=== PATIENT | male | born 1945 | race Caucasian/White ===

== ENCOUNTER 2022-04-25 09:32 | Outpatient (CLI) | payer MEDICARE, OTHER, SELFPAY ==
--- OUTSIDE RECORDS SUMMARY | 2022-04-25 09:35 | XMS_ITS | Encounter Summary ---
:1945 Author Organization [place] Address [address] [place] [address]. [place] [address] Care Team Providers Name Role Phone Orlando Arshad MD Primary Care Provider [phone] Orlando Arshad MD Unavailable Reason for Visit Reason Onset Date Comments Medication Question 01/22/2022 gabapentin Encounter Details Date Type Department Care Team Description 01/22/2022 Telephone [facility] Orlando Arshad Med ication Question Clinic [facility] MD (gabapentin) [address] [place] [address] [place], [place] [phone] (Wo rk) [address] [phone] Social History Tobacco Use Types Packs/Day Years Used Date Former Smoker Quit: 11/27/18 72 Smokeless Tobacco: Former User Snuff Q uit: 11/27/1996 Alcohol Use Standard Drinks/Week Comments Never 0 (1 standard drink = 0.6 oz pure alcoho l) Alcohol Habits Answer Date Recorded How often do you have a drink containing alcohol? Never 11/27/2021 How many drinks containing alcohol do you have on a typical Not asked day when you are drinking? How often do you have six or more drinks on one occasion? No t asked Comment: Not asked Sex Assigned at Date Recorded Not on file documented as of this encounter Miscellaneous Notes Telephone Encounter - Jacinda Diana - 01/23/2022 11:49 AM CDT Patient advised. Telephone Encounter - Anjana Gomez RN - 01/23/2022 9:07 AM CDT Attempted to contact patient. Left voice message to call back. Please inform patient that Dr. Arshad said he can increase his gabapentin from 100 mg 3 times a day to 200 mg 3 times per day and sent an updated prescription to [facility] pharmacy. Anjana Gomez RN [facility] Telephone Encounter - Orlando Arshad MD - 01/22/2022 2:34 PM CDT We can increase his gabapentin from 100 mg 3 times a day to 200 mg 3 times per day. An updated prescription has been submitted to his pharmacy. Telephone Encounter - Ger Corona - 01/22/2022 1:01 PM CDT Patient is asking if Dr Arshad can prescribe a higher dosage of RX Gapapentin to 200 mg instead of 100 mg? Going forward, all medications will be sent to [facility] as well. documented in this encounter Plan of Treatment Not on filedocumented as of this encounter Visit Diagnoses Diagnosis Pain in both upper extremities - Primary documented in this encounter Care Teams Manager Clinical Services Relationship Specialty Start Date End Date Orlando Arshad MD PCP - General Internal Medicine 11/27/21 [address] [place] [address] Orlando Arshad MD Assigned PCP 10/31/21 [address] [place] [address] documented as of this encounter
--- OUTSIDE RECORDS SUMMARY | 2022-04-25 09:35 | XMS_ITS | Encounter Summary ---
:1945 Author Organization [place] Address [address] [place] [address] Care Team Providers Name Role Phone Orlando Arshad MD Primary Care Provider [phone] Orlando Arshad MD Unavailable Encounter Details Date Type Department Care Team Description 12/09/2021 Travel Social History Tobacco Use Types Packs/Day Years [...] Assigned at Date Recorded Not on file COVID-19 Exposure Response Date Recorded In the last 10 days, have you been in contact with No / Unsu re 12/09/2021 2:52 PM CDT someone who was confirmed or suspected to have Coronavirus/COVID-19? documented as of this encounter Plan of Treatment Not on filedocumented as of this encounter Visit Diagnoses Not on filedocumented in this encounter Care Teams Mixing And Molding Machine Operator Relationship Specialty Start Date End Date Orlando Arshad MD PCP - General Internal Medicine 11/27/21 [address] [place] [address] Orlando Arshad MD Assigned PCP 10/31/21 [address] [place] [address] documented as of this encounter
--- OUTSIDE RECORDS SUMMARY | 2022-04-25 09:35 | XMS_ITS | Encounter Summary ---
:1945 Author Organization [place] Address [address] [place] [address] Care Team Providers Name Role Phone Orlando Arshad MD Primary Care Provider [phone] Orlando Arshad MD Unavailable Reason for Referral Diagnostic Imaging MRI (Routine) - Closed Specialty Diagnoses / Procedures Referred By Contact Refer red To Contact Diagnoses Weakness of both arms Orlando Arshad MD Procedures MR Cervical Spine w/o Contrast [address] [place] [address] Referral ID Status Reason Start Date Expiration Date Visits Requ ested Visits Authorized [id number] Closed 12/02/2021 12/02/2022 1 1 Reason for Visit Diagnostic Imaging MRI (Routine) - Closed Specialty Diagnoses / Procedures Referred By Contact Refer red To Contact Diagnoses Weakness of both arms Orlando Arshad MD Procedures MR Cervical Spine w/o Contrast [address] [place] [address] Referral ID Status Reason Start Date Expiration Date Visits Requ ested Visits Authorized [id number] Closed 12/02/2021 12/02/2022 1 1 Encounter Details Date Type Department Care Team Description 12/09/2021 Hospital Encounter [facility] Jeancarlos, Weak ness of both [facility] [place] [address] [place] [address] [place] [address] [address] [place] [address] [phone] Social History Tobacco Use Types Packs/Day Years [...] have Coronavirus/COVID-19? documented as of this encounter Medications at Time of Discharge Medication Sig Dispensed Refills Start Date End Date fluticasone (FLOVENT HFA) Inhale 1 puff into 0 220 MCG/ACT inhaler the lungs 2 times daily pravastatin (PRAVACHOL) 40 Take 1 tablet (40 mg) 0 11/27/2021 MG tablet by mouth daily terazosin (HYTRIN) 10 MG Take 1 capsule (10 0 capsule mg) by mouth At Bedtime tiotropium (SPIRIVA) 18 Inhale 1 capsule (18 0 MCG inhaled capsule mcg) into the lungs daily documented as of this encounter Plan of Treatment Not on filedocumented as of this encounter Procedures Procedure Name Priority Date/Time Associated Diagnosis Comme nts MR CERVICAL SPINE Routine 12/09/2021 3:32 PM Weakness of both Results for this W/O CONTRAST CDT arms procedure are i n the results section. documented in this encounter Results MR Cervical Spine w/o Contrast (12/09/2021 3:32 PM CDT) Anatomical Region Laterality Modality Spine, SUBRAD MR NEURO, UMP MR SPINE, RAD MR Magnetic Resonance Specimen (Source) Anatomical Location Collection Method / Collectio n Time Received Time / Laterality Volume Impressions 12/10/2021 9:50 AM CDT IMPRESSION: 1. ??Multilevel cervical spondylosis as described in the body the report. 2. No high-grade spinal canal or foramin al stenosis. 3. No cord signal abnormality. JAE TELLES MD SYSTEM ID: ??[id number] Narrative 12/10/2021 9:50 AM CDT MRI OF THE CERVICAL SPINE WITHOUT CONTRAST 12/09/2021 3:32 PM COMPARISON: 11/27/2021 cervical spine rad iograph HISTORY: Neck pain, chronic, degenerativ e changes on xray; Weakness of both arms TECHNIQUE: Multiplanar, multisequence MR I images of the cervical spine were acquired without intravenous contra st. FINDINGS: Normal vertebral body heights. Normal al ignment. Benign intraosseous hemangioma at the C6 level. No aggressiv e marrow replacing process or significant bone marrow or endplate lesia a. The prevertebral and posterior paraspinous soft tissues are u nremarkable. Normal cord signal. Limited evaluation of the intrac ranial compartment is unremarkable. The craniocervical junction is normal. C2-C3: Normal disc height. 0.2 cm in AP dimension central disc protrusion indents the ventral thecal sa c without spinal canal stenosis or cord contact. Left greater t ryan right uncinate spurring and facet hypertrophy. Mild left foramin al stenosis. No right foraminal stenosis. C3-C4: Normal disc height. Left asymmetr ic disc osteophyte complex with indentation of the left anterolater al thecal sac. Superimposed 0.4 cm central disc extrusion. Left grea ter than right uncinate spurring and facet hypertrophy. Ligament um flavum buckling. Mild spinal canal stenosis. Mild to moderate left foraminal stenosis. Mild right foraminal stenosis. C4-C5: Normal disc height. Posterior deg enerative disc osteophyte complex with bilateral uncinate spurring , facet hypertrophy and ligamentum flavum buckling. Mild spinal canal stenosis. Mild right and jnuv-ah-xljrjdvc left foraminal stenosis . Bilateral C5-C6: Mild disc height loss with circum ferential disc osteophyte complex and left greater than right unco vertebral spurring. Bilateral facet hypertrophy. No spinal canal steno sis. Mild right foraminal stenosis. Moderate left foraminal stenos is. C6-C7: Mild to moderate disc height loss with circumferential disc osteophyte complex and bilateral uncover tebral spurring. Mild facet cirrhosis. No spinal canal stenosis. No foraminal stenosis. C7-T1:Normal disc height and T2-weighted signal. Normal facets. No spinal canal stenosis. No foraminal sten osis. Procedure Note Jae Telles MD - 12/10/2021Forma tting of this note might be different from the original. MRI OF THE CERVICAL SPINE WITHOUT CONTRA ST 12/09/2021 3:32 PM COMPARISON: 11/27/2021 cervical spine rad iograph HISTORY: Neck pain, chronic, degenerativ e changes on xray; Weakness of both arms TECHNIQUE: Multiplanar, multisequence MR I images of the cervical spine were acquired without intravenous contra st. FINDINGS: Normal vertebral body heights. Normal al ignment. Benign intraosseous hemangioma at the C6 level. No aggressiv e marrow replacing process or significant bone marrow or endplate lesia a. The prevertebral and posterior paraspinous soft tissues are u nremarkable. Normal cord signal. Limited evaluation of the intrac ranial compartment is unremarkable. The craniocervical junction is normal. C2-C3: Normal disc height. 0.2 cm in AP dimension central disc protrusion indents the ventral thecal sa c without spinal canal stenosis or cord contact. Left greater t ryan right uncinate spurring and facet hypertrophy. Mild left foramin al stenosis. No right foraminal stenosis. C3-C4: Normal disc height. Left asymmetr ic disc osteophyte complex with indentation of the left anterolater al thecal sac. Superimposed 0.4 cm central disc extrusion. Left grea ter than right uncinate spurring and facet hypertrophy. Ligament um flavum buckling. Mild spinal canal stenosis. Mild to moderate left foraminal stenosis. Mild right foraminal stenosis. C4-C5: Normal disc height. Posterior deg enerative disc osteophyte complex with bilateral uncinate spurring , facet hypertrophy and ligamentum flavum buckling. Mild spinal canal stenosis. Mild right and jzab-jh-iyhxiemh left foraminal stenosis . Bilateral C5-C6: Mild disc height loss with circum ferential disc osteophyte complex and left greater than right unco vertebral spurring. Bilateral facet hypertrophy. No spinal canal steno sis. Mild right foraminal stenosis. Moderate left foraminal stenos is. C6-C7: Mild to moderate disc height loss with circumferential disc osteophyte complex and bilateral uncover tebral spurring. Mild facet cirrhosis. No spinal canal stenosis. No foraminal stenosis. C7-T1:Normal disc height and T2-weighted signal. Normal facets. No spinal canal stenosis. No foraminal sten osis. IMPRESSION: 1. Multilevel cervical spondylosis as de scribed in the body the report. 2. No high-grade spinal canal or foramin al stenosis. 3. No cord signal abnormality. JAE TELLES MD SYSTEM ID: [id number] Orlando Arshad MD IMG MRI ORDERABLES documented in this encounter Visit Diagnoses Diagnosis Weakness of both arms Other musculoskeletal symptoms referable to limbs documented in this encounter Care Teams Life Science Teacher Relationship Specialty Start Date End Date Orlando Arshad MD PCP - General Internal Medicine 11/27/21 [address] [place], [place] [id number] Orlando Arshad MD Assigned PCP 10/31/21 [address] [place], [place] [address] documented as of this encounter
--- OUTSIDE RECORDS SUMMARY | 2022-04-25 09:35 | XMS_ITS | Encounter Summary ---
:1945 Author Organization [facility] Address [address] [place] [address]. [place] [address] Care Team Providers Name Role Phone Orlando Arshad MD Primary Care Provider [phone] Orlando Arshad MD Unavailable Reason for Visit Diagnostic Imaging XR (Routine) - Pending Review Specialty Diagnoses / Procedures Referred By Contact Refer red To Contact Diagnoses Weakness of both arms Orlando Arshad MD Procedures XR Cervical Spine 2/3 Views [address] [place] [address] Referral ID Status Reason Start Date Expiration Date Visits V isits Requested Authorized [id number] Pending 11/27/2021 11/27/2022 1 1 Review Encounter Details Date Type Department Care Team Description 11/27/2021 Ancillary [facility] Sridevi Arshad f both Procedure Clinic [place] [address] MD arms [address] [facility] [address] [place] [address] [phone] Social History Tobacco Use Types Packs/Day Years [...] Exposure Response Date Recorded In the last month, have you been in contact with No / Unsure 11/27/2021 1:47 PM CDT someone who was confirmed or suspected to have Coronavirus / COVID-19? documented as of this encounter Plan of Treatment Not on filedocumented as of this encounter Procedures Procedure Name Priority Date/Time Associated Diagnosis Comme nts XR CERVICAL SPINE Routine 11/27/2021 3:08 PM Weakness of both Results for this 2/3 VIEWS CDT arms procedure are i n the results section. documented in this encounter Results XR Cervical Spine 2/3 Views (11/27/2021 3:08 PM CDT) Anatomical Region Laterality Modality Spine Computed Radiography Specimen (Source) Anatomical Location Collection Method / Collectio n Time Received Time / Laterality Volume Impressions 11/27/2021 5:08 PM CDT IMPRESSION: Bones appear osteopenic which limits evaluation. Mild grade 1 anterolisthesis of C4 on C5. No definite loss of vertebral body height noting limitations by plain film evaluation. No significant prevertebral soft tissue swe lling. Mild degenerative endplate changes and loss of disc height throughout the cervical spine. Prominent anterior osteophytic sp urring at C5-C6. The base of the dens is obscured on the odontoid vie w. COBY BECKER MD SYSTEM ID: ??[id number] Narrative 11/27/2021 5:08 PM CDT CERVICAL SPINE TWO - THREE VIEWS ??11/27/2021 3:08 PM HISTORY: Weakness of both arms. COMPARISON: None. Procedure Note Coby Becker MD - 11/27/2021 CERVICAL SPINE TWO - THREE VIEWS 11/28/19 3:08 PM HISTORY: Weakness of both arms. COMPARISON: None. IMPRESSION: Bones appear osteopenic whic h limits evaluation. Mild grade 1 anterolisthesis of C4 on C5. No definite loss of vertebral body height noting limitations by plain film evaluation. No significant prevertebral soft tissue swe lling. Mild degenerative endplate changes and loss of disc height throughout the cervical spine. Prominent anterior osteophytic sp urring at C5-C6. The base of the dens is obscured on the odontoid juan alberto BECKER MD SYSTEM ID: [email or web address] Orlando Arshad MD IMG DIAGNOSTIC IMAGING ORDER ISA documented in this encounter Visit Diagnoses Diagnosis Weakness of both arms Other musculoskeletal symptoms referable to limbs documented in this encounter Care Teams Student Counselor Relationship Specialty Start Date End Date Orlando Arshad MD PCP - General Internal Medicine 11/27/21 [address] [place] [address] Orlando Arshad MD Assigned PCP 10/31/21 [address] [place], [place] [id number] documented as of this encounter
--- OUTSIDE RECORDS SUMMARY | 2022-04-25 09:35 | XMS_ITS | Encounter Summary ---
:1945 Author Organization [facility] Address [address] [place] [address]. [place] [address] Care Team Providers Name Role Phone Orlando Arshad MD Primary Care Provider [phone] Orlando Arshad MD Unavailable Reason for Referral Diagnostic Imaging MRI (Routine) - Closed Specialty Diagnoses / Procedures Referred By Contact Refer red To Contact Diagnoses Weakness of both arms Orlando Arshad MD Procedures MR Cervical Spine w/o Contrast [address] [place] [address] Referral ID Status Reason Start Date Expiration Date Visits Requ ested Visits Authorized [id number] Closed 12/02/2021 12/02/2022 1 1 Encounter Details Date Type Department Care Team Description 12/02/2021 Orders Only [facility] Orlando Arshad of both arms Clinic [address] MD (Primary Dx) [address] [place] [address] [place] [id number] [phone] Social History Tobacco Use Types Packs/Day Years [...] Not on filedocumented as of this encounter Results MR Cervical Spine w/o [...] Mild spinal canal stenosis. Mild right and oknp-vt-ppfvejmh left foraminal stenosis . Bilateral C5-C6: Mild [...] Mild spinal canal stenosis. Mild right and vzcp-tp-rtnkqivi left foraminal stenosis . Bilateral C5-C6: Mild [...] Visit Diagnoses Diagnosis Weakness of both arms - Primary Other musculoskeletal symptoms referable to limbs Weakness of both arms Other musculoskeletal symptoms referable to limbs documented in this encounter Care Teams Dump Grounds Checker Relationship Specialty Start Date End Date Orlando Arshad MD PCP - General Internal Medicine 11/27/21 [address] [place] [address] Orlando Arshad MD Assigned PCP 10/31/21 [address] [place] [address] documented as of this encounter
--- OUTSIDE RECORDS SUMMARY | 2022-04-25 09:35 | XMS_ITS | Encounter Summary ---
:1945 Author Organization [facility] Address [address] [place] [address]. [place] [address] Care Team Providers Name Role Phone Unavailable Primary Care Provider Unavailable Encounter Details Date Type Department Care Team Description 11/26/2006 Results [facility] Vitor Almodovar MD Hospital Results [facility] UROLOGIC SPECIALIST [address] [facility] [address] [place], [place] [address] (Wo rk) Social History Tobacco Use Types Packs/Day Years Used Date Never Assessed Sex Assigned at Date Recorded Not on file documented as of this encounter Plan of Treatment Not on filedocumented as of this encounter Procedures Procedure Name Priority Date/Time Associated Diagnosis Comme nts US SCROTUM AND Routine 11/26/2006 3:11 PM Resu lts for this CONTENTS CDT procedure are i n the results section. documented in this encounter Results SONO SCROTUM (11/26/2006 3:11 PM CDT) Specimen (Source) Anatomical Collection Method Collection Time Re ceived Time Location / / Volume Laterality 11/26/2006 3:11 PM CDT Impressions RADIOLOGY RESULTS - 11/27/2006 8:14 AM C DT EXAM: US TESTICULAR History: Right testicle mass Findings: The right testicle measures 3. 7 x 3.3 x 2.3 cm. The left testicle measures 4.2 x 3.3 x 2.3 cm. Blood flow is present in both testicles. There is a prominent rete testes in the right testicle. As on the prior exam there is some heter ogeneity of the upper pole of the right testicle. Heterogeneity is in a somewhat geographic distribution suggesting that this is not a mass. ??It may represent some scarring. There is slightly diminis hed blood flow throughout this region. Patient reports a prior biopsy o r possibly two biopsies although he does not know if the testicl e was biopsied. Correlate clinically. There is a 1.9 cm right epididymal head cyst or spermatocele. The right epididymis is somewhat heterogeneo us. No increased blood flow to suggest acute inflammation. Left epididy mis is also mildly heterogeneous. There is a loculated hydr ocele inferior to the left testicle. IMPRESSION: 1. Persistent heterogeneity of the upper pole of the right testicle in a geographic distribution and slightly d ecreased blood flow. This does not have the typical appearance of a mas s. It may represent some chronic scarring. Recommend additional u ltrasound followup in 6 months. A subtle infiltrating mass canno t absolutely be excluded. 2. Prominent right epididymal head cyst. 3. Loculated hydrocele inferior left hem iscrotum. Vitor Almodovar MD SPECIAL IMAGING STUDIES Performing Organization Address City/State/ZIP Code Phon e Number RADIOLOGY RESULTS documented in this encounter Visit Diagnoses Not on filedocumented in this encounter
--- OUTSIDE RECORDS SUMMARY | 2022-04-25 09:35 | XMS_ITS | Encounter Summary ---
:1945 Author Organization [place] Address [address] [place] [address]. [place] [address] Care Team Providers Name Role Phone Unavailable Primary Care Provider Unavailable Encounter Details Date Type Department Care Team Description 08/17/2006 Results Only [facility] Vitor Almodovar MD Hospital Results [facility] UROLOGIC SPECIALIST [address] [facility] [address] [place], [place] [address] (Wo rk) Social History Tobacco Use Types Packs/Day Years Used Date Never Assessed Sex Assigned at Date Recorded Not on file documented as of this encounter Plan of Treatment Not on filedocumented as of this encounter Procedures Procedure Name Priority Date/Time Associated Diagnosis Comme nts US SCROTUM AND Routine 08/17/2006 4:25 PM Resu lts for this CONTENTS TAPPER OPERATOR procedure are i n the results section. documented in this encounter Results SONO SCROTUM (08/17/2006 4:25 PM TAPPER OPERATOR) Specimen (Source) Anatomical Collection Method Collection Time Re ceived Time Location / / Volume Laterality 08/17/2006 4:25 PM TAPPER OPERATOR Impressions RADIOLOGY RESULTS - 08/18/2006 7:[address] EXAM: US TESTICULAR HISTORY: right testicular mass FINDINGS: The right testicle measures 3. 3 x 2.4 x 3.0 cm. The left measures 4.2 x 2.9 x 2.9 cm. There is sy mmetric flow in the testicles. Prominent rete testes in the right testi rosa m, a normal finding. There is also some mild inhomogeneity of the u pper portion of the right testicle which has the suggestion of pro minent testicular architecture and does not have the appearance of a ma ss. However, recommend short-term followup to confirm continued benign appearance. There is a 1.9 cm right epididymal head cyst which appears to correspond with a palpable abnormality. Both epididymides are somewhat hypoechoic and mildly prominent, probabl y within normal limits in this patient. No evidence for increased flow to suggest epididymitis. Small left hydrocele. IMPRESSION: ?? 1. Right epididymal head cyst. 2. Small left hydrocele. 3. Mild inhomogeneity of the upper right testicle, probably within normal limits. Recommend short-term foll owup ultrasound in 3 months to reevaluate. Vitor Almodovar MD SPECIAL IMAGING STUDIES Performing Organization Address City/State/ZIP Code Phon e Number RADIOLOGY RESULTS documented in this encounter Visit Diagnoses Not on filedocumented in this encounter
--- OUTSIDE RECORDS SUMMARY | 2022-04-25 09:35 | XMS_ITS | Encounter Summary ---
:1945 Author Organization [place] Address [address] [place] [address]. [place] [address] Care Team Providers Name Role Phone Juliane Arshad MD Primary Care Provider [phone] Juliane Arshad MD Unavailable Reason for Visit Reason Onset Date Comments Results 12/11/2021 MRI Encounter Details Date Type Department Care Team Description 12/11/2021 Telephone [facility] Celestine Arshad, Results (MRI) [facility] [place] [address] [place] [address] [phone] Social History Tobacco Use Types Packs/Day Years [...] have Coronavirus/COVID-19? documented as of this encounter Miscellaneous Notes Telephone Encounter - Anjana Gomez RN - 12/13/2021 8:00 AM CDT Left detailed voice message for patient advising him 1 month trial of gabapentin 100 mg TID sent to local [facility], not [facility]. This is a very low dose to start and it may need jhonny adjusted based on his response to it. Asked patient to contact the clinic if he wants the prescription sent to [facility] instead. Also asked him to call back with update on his response in a few weeks. Anjana Gomez RN [facility] Telephone Encounter - Juliane Arshad MD - 12/12/2021 4:59 PM CDT A prescription for gabapentin 100 mg by mouth 3 times per day was submitted to the patient's pharmacy. We will proceed with a 1 month trial of this medication. Patient should be aware that he is on a very low dose of this medication, and we may have to increase the dosage based upon his response. Telephone Encounter - Kailyn Beckman - 12/12/2021 4:32 PM CDT Patient calling. He wants to start on medication. Patient has two sons who are PT and they are working with him. Please [facility] RX to [facility]. Ok to call and [phone] Telephone Encounter - Coco Randhawa RN - 12/12/2021 11:51 AM CDT Pt calls, mailed results per his request. Telephone Encounter - Coco Pittman - 12/11/2021 2:06 PM CDT Patient calls back and message was read to him. 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 ??This is the likely cause of his issues with weakness in his upper extremities. ??I would recommend that he consider a trial of physical therapy to see if we can help improve his symptoms. ??We could also try a medication to help see if we can decrease the severity of his symptoms. ??If patient is agreeable, I can submit a referral for physical therapy, and I can also submit a prescription for medication called gabapentin to see if that would help improvehis symptoms. Left message for patient to call back. Telephone Encounter - Kailyn Beckman - 12/11/2021 12:04 PM CDT Patient calling for results of MRI Ok to call and lm [phone] Addendum Note - Juliane Arshad MD - 12/11/2021 12:04 PM CDT Addended by: JULIANE ARSHAD on: 12/12/2021 05:00 PM Modules accepted: Orders documented in this encounter Plan of Treatment Not on filedocumented as of this encounter Visit Diagnoses Diagnosis Weakness of both arms - Primary Other musculoskeletal symptoms referable to limbs documented in this encounter Care Teams Federal Law Clerk Relationship Specialty Start Date End Date Juliane Arshad MD PCP - General Internal Medicine 11/27/21 [place] [address] Juliane Arshad MD Assigned PCP 10/31/21 [address] [place] [address] documented as of this encounter
--- OUTSIDE RECORDS SUMMARY | 2022-04-25 09:35 | XMS_ITS | Encounter Summary ---
:1945 Author Organization [place] Address [address] [place] [address]. [place] [address] Care Team Providers Name Role Phone Orlando Arshad MD Primary Care Provider [phone] Orlando Arshad MD Unavailable Encounter Details Date Type Department Care Team Description 11/27/2021 Travel Social History Tobacco Use Types Packs/Day [...] on filedocumented in this encounter Care Teams Hospital Insurance Clerk Relationship Specialty Start Date End Date Orlando Arshad MD PCP - General Internal Medicine 11/27/21 [address] [place] [address] Orlando Arshad MD Assigned PCP 10/31/21 [place] [id number] documented as of this encounter
--- OUTSIDE RECORDS SUMMARY | 2022-04-25 09:35 | XMS_ITS | Encounter Summary ---
:1945 Author Organization [facility] Address [address] [place] [address]. [place] [address] Care Team Providers Name Role Phone Orlando Arshad MD Primary Care Provider [phone] Orlando Arshad MD Unavailable Reason for Referral Diagnostic Imaging XR (Routine) - Pending Review Specialty Diagnoses / Procedures Referred By Contact Refer red To Contact Diagnoses Weakness of both arms Orlando Arshad MD Procedures XR Cervical Spine 2/[address] [place] [address] Referral ID Status Reason Start Date Expiration Date Visits V isits Requested Authorized [id number] Pending 11/27/2021 11/27/2022 1 1 Review Reason for Visit Reason Comments Mass Fatigue Encounter Details Date Type Department Care Team Description 11/27/2021 Office Visit [facility] Orlando Arshad n in both upper extremities (Primary Dx); Clinic [address] MD Weakness of both arms; [address] [address] Diastasis [place] [id number] [phone] Social History Tobacco Use Types Packs/Day Years [...] / COVID-19? documented as of this encounter Last Filed Vital Signs Vital Sign Reading Time Taken Comments Blood Pressure 120/78 11/27/2021 2:10 PM CDT Pulse 62 11/27/2021 2:10 PM CDT Temperature 36.4 ??C (97.5 ??F) 11/27/2021 2:10 PM CDT Respiratory Rate 16 11/27/2021 2:10 PM CDT Oxygen Saturation 95% 11/27/2021 2:10 PM CDT Inhaled Oxygen Concentration - - Weight 96.2 kg (212 lb) 11/27/2021 2:10 PM CDT Height 181.6 cm (5' 11.5) 11/27/2021 2:10 PM CDT Body Mass Index 29.16 11/27/2021 2:10 PM CDT documented in this encounter Patient Instructions Patient InstructionsCunnOrlando silva MD - 11/27/2021 2:30 PM CDT Initial evaluation of his symptoms will include blood test for CPK, ESR, and CRP. We will also proceed with x-ray imaging of his cervical spine. documented in this encounter Progress Notes Orlando Arshad MD - 11/27/2021 2:30 PM CDT Images from the original note were not included. Assessment & Plan Pain in both upper extremities and weakness of both arms Patient is reporting issues with pain and weakness in his bilateral upper extremities. He is not currently reporting any neck pain, but I did feel that it was worthwhile to proceed with x-ray imaging of his cervical spine to evaluate for any degenerative changes that could indicate nerve root pathology. Patient will also submit a blood sample for inflammatory markers as well as a CPK to ensure that he is not having any issues with muscle tissue turnover that could be causing his issues with weaknessand loss of muscle mass. Patient did express some concerns about underlying neurologic condition, such as ALS or MS. I did discuss with him that we could proceed with MRI imaging of his brain and spinal cord to evaluate for any lesions that would be consistent with either of these neurologic conditions. Patient did elect to see the results of his x-ray and blood tests before proceeding with any additional imaging. We will contact him with results once they are available for review. - CK total - ESR: Erythrocyte sedimentation rate - CRP, inflammation -X-ray cervical spine, 2-3 views Diastasis recti Patient appears to have a case of diastases recti involving the midline of his abdomen. Given that it is not causing him any symptoms, we did elect to monitor this lesion for any changes. Ordering of each unique test 30 minutes spent on the date of the encounter doing chart review, history and exam, documentation and further activities per the note { BMI: Estimated body mass index is 29.16 kg/m?? as calculated from the following: Height as of this encounter: 1.816 m (5' 11.5). Weight as of this encounter: 96.2 kg (212 lb). See Patient Instructions Return in about 2 weeks (around 12/11/2021), or if symptoms worsen or fail to improve. Orlando Arshad MD [facility] Gadiel is a 76 year old who presents with bilateral arm symptoms Patient is a 76-year-old male who presents to the clinic as a new patient to discuss concerns about his arms. He reports that for the last 6 weeks he has had issues with persistent episodes of pain that will occur down the length of both arms. This pain will occur if he is trying to perform twisting movements with his upper extremities. Is also been concerned about loss of muscle mass in his arms as well. He does report some intermittent episodes of weakness, but he denies any issues with numbness or tingling in either extremity. Patient states that his pain does occur from his wrists allthe way up to his shoulders bilaterally. He does not recall any traumatic injury or event that triggered his discomfort. He has been taking ibuprofen intermittently for his discomfort, but it did not resolve his symptoms fully. Patient is very concerned that there could be an underlying neurologic condition causing his symptoms. He is not aware of any family history of neurologic disorders. He is also had no change in his bowel or bladder habits. His urine has not had any unusual colors. He also notes a bulging area in his mid abdomen. This lesion has been present for several years, and it is only noticeable when he performs any flexion of his abdominal muscles. It does not cause him any discomfort. He would like to have it evaluated. Concerned of possible umbilical hernia for years. Bilateral arm weakness for 6 weeks. Denies injury. Review of Systems Constitutional: Negative. HENT: Negative. Respiratory: Negative. Cardiovascular: Negative. Gastrointestinal: Negative. Musculoskeletal: Positive for arthralgias and myalgias. Neurological: Positive for weakness. Negative for numbness. Objective Blood pressure 120/78, pulse 62, temperature 97.5 ??F (36.4 ??C), temperature source Oral, resp. rate 16, height 1.816 m (5' 11.5), weight 96.2 kg (212 lb), SpO2 95 %. Physical Exam Vitals and nursing note reviewed. Constitutional: Appearance: Normal appearance. HENT: Head: Normocephalic and atraumatic. Right Ear: Tympanic membrane, ear canal and external ear normal. Left Ear: Tympanic membrane, ear canal and external ear normal. Mouth/Throat: Mouth: Mucous membranes are moist. Pharynx: Oropharynx is clear. Eyes: Extraocular Movements: Extraocular movements intact. Conjunctiva/sclera: Conjunctivae normal. Pupils: Pupils are equal, round, and reactive to light. Cardiovascular: Rate and Rhythm: Normal rate and regular rhythm. Pulses: Normal pulses. Heart sounds: Normal heart sounds. Pulmonary: Effort: Pulmonary effort is normal. Breath sounds: Normal breath sounds. Abdominal: General: Bowel sounds are normal. Palpations: Abdomen is soft. Comments: Diastases recti noted with tension of his abdominal muscles. Musculoskeletal: Right shoulder: No tenderness. Decreased range of motion. Left shoulder: No tenderness. Decreased range of motion. Comments: Pain associated with external and internal rotation of shoulder joints bilaterally. Skin: Capillary Refill: Capillary refill takes less than 2 seconds. Neurological: General: No focal deficit present. Mental Status: He is alert and oriented to person, place, and time. Mental status is at baseline. Motor: Motor function is intact. Coordination: Coordination is intact. Deep Tendon Reflexes: Reflexes are normal and symmetric. Diagnostic Test Results: ESR, CRP, and CPK are pending. X-ray of cervical spine, 2-3 views is pending. documented in this encounter Plan of Treatment Not on filedocumented as of this encounter Procedures Procedure Name Priority Date/Time Associated Comments Diagnosis ERYTHROCYTE Routine 11/27/2021 3:14 PM Pain in both upper Res ults for this SEDIMENTATION RATE CDT extremities procedure are in AUTO the results section. CRP INFLAMMATION Routine 11/27/2021 3:14 PM Pain in both upper Results for this CDT extremities procedure are i n the results section. CK TOTAL Routine 11/27/2021 3:14 PM Pain in both upper Res ults for this CDT extremities procedure are i n the results section. documented in this encounter Results CRP, inflammation (11/27/2021 3:14 PM CDT) Analysis Performed At Patho logist Time Signature CRP Inflammation <2.9 0.0 - 8.0 11/27/2021 [facility] Y mg/L 7:17 PM CDT Specimen Anatomical Collection Method / Collection Time Recei ira Time (Source) Location / Volume Laterality Blood BLOOD SPECIMEN / Venipuncture / 11/27/2021 3:14 2021 3:14 Unknown Unknown PM CDT PM CDT Orlando Arshad MD LAB - BLOOD ORDERABLES Performing Organization Address City/State/ZIP Code Phon e Number [facility] [place] [address] Lab [address] [facility] [address] Building, Room 3-580 ESR: Erythrocyte sedimentation rate (11/27/2021 3:14 PM CDT) Patholo gist Method Time Signature Erythrocyte 4 0 - 20 11/27/2021 [facility] Sedimentation Rate mm/hr 3:23 PM CDT Specimen Anatomical Collection Method / Collection Time Recei ira Time (Source) Location / Volume Laterality Blood BLOOD SPECIMEN / Venipuncture / 11/27/2021 3:14 2021 3:14 Unknown Unknown PM CDT PM CDT Orlando Arshad MD LAB - BLOOD ORDERABLES Performing Organization Address City/[facility]/ZIP Code Phon [place] Number [place] [address] [phone] [facility] [address], [address] [place] [address], [phone] [facility] [address] [place] [facility], [address] CK total (11/27/2021 3:14 PM CDT) athologist Signature CK 100 30 - 300 U/L 11/28/2021 [facility] 8:22 AM CDT Specimen Anatomical Collection Method / Collection Time Recei ira Time (Source) Location / Volume Laterality Blood BLOOD SPECIMEN / Venipuncture / 11/27/2021 3:14 2021 3:14 Unknown Unknown PM CDT PM CDT Orlando Arshad MD LAB - BLOOD ORDERABLES Performing Organization Address City/[facility]/ZIP [facility] Phon e Number [facility] [place], [place] [phone] [facility] [phone] [place] [address] Lab (no room number, 1st floor of clinic) [facility] [place], [place] [phone] [facility] [address] [address] [place] [address] Lab (no room number, 1st floor of clinic) XR Cervical Spine 2/3 Views (11/27/2021 3:08 [...] vie w. COBY BECKER MD SYSTEM ID: [id number] Orlando Arshad MD IMG DIAGNOSTIC IMAGING ORDER IAS documented in this encounter Visit Diagnoses Diagnosis Pain in both upper extremities - Primary Weakness of both arms Other musculoskeletal symptoms referable to limbs Diastasis recti Diastasis of muscle Weakness of both arms Other musculoskeletal symptoms referable to limbs documented in this encounter Care Teams Venetian Blind Mechanic Relationship Specialty Start Date End Date Orlando Arshad MD PCP - General Internal Medicine 11/27/21 [address] [place], [place] [id number] Orlando Arshad MD Assigned PCP 10/31/21 [address] [facility] [place] [id number] documented as of this encounter
--- OUTSIDE RECORDS SUMMARY | 2022-04-25 09:35 | XMS_ITS | Clinical Summary ---
:1945 Author Organization [facility] Address [address] [place] [address] Care Team Providers Name Role Phone Orlando Arshad MD Primary Care Provider [phone] Orlando Arshad MD Unavailable Allergies No known active allergies Medications Medication Sig Dispensed Refills Start Date End Date Status fluticasone (FLOVENT Inhale 1 puff 0 11/27/2021 Active HFA) 220 MCG/ACT into the lungs 2 inhaler times daily tiotropium (SPIRIVA) Inhale 1 capsule 0 11/27/2021 Active 18 MCG inhaled (18 mcg) into the capsule lungs daily pravastatin Take 1 tablet (40 0 11/27/2021 Active (PRAVACHOL) 40 MG mg) by mouth tablet daily terazosin (HYTRIN) 10 Take 1 capsule 0 11/27/2021 Active MG capsule (10 mg) by mouth At Bedtime gabapentin Take 1 capsule 90 capsule 0 12/12/2021 Ac tive (NEURONTIN) 100 MG (100 mg) by mouth capsuleIndications: 3 times daily Weakness of both arms gabapentin Take 2 capsules 180 capsule 1 01/22/2022 Active (NEURONTIN) 100 MG (200 mg) by mouth capsuleIndications: 3 times daily Pain in both upper extremities Active Problems No known active problems Immunizations Name Administration Dates Next Due COVID-19,PF,Pfizer (12+ Yrs) 06/03/2021, 10/14/2020, 021 Influenza, Quad, High Dose, Pf, 65yr+ 06/26/2021, 06/14/2020 (Fluzone HD) Pneumococcal 23 valent 07/01/2012 Tdap (Adacel,Boostrix) 07/01/2012 Tetanus 03/02/2011 Zoster vaccine recombinant adjuvanted 10/25/2018, 08/12/2018 (SHINGRIX) Family History Medical History Relation Comments Cerebral aneurysm Father Liver Cancer Mother Diabetes No family hx of Relation Status Comments Father (Age 43) Maternal Grandfather Maternal Grandmother Mother (Age 63) Paternal Grandfather Paternal Grandmother Social History Tobacco Use Types Packs/Day Years [...] Assigned at Date Recorded Not on file Last Filed Vital Signs Vital Sign Reading [...] Mass Index 29.16 11/27/2021 2:10 PM CDT Plan of Treatment Health Maintenance Due Date Last Done Comments ADVANCE CARE PLANNING 1945 HEPATITIS C SCREENING 1963 LIPID 1980 MEDICARE ANNUAL WELLNESS 2010 VISIT Pneumococcal Vaccine: 65+ 07/01/2013 07/01/2012 Years (2 - PCV) COVID-19 Vaccine (4 - Booster 10/04/2021 06/03/2021, for Pfizer series) 10/14/2020, 09/23/2020 INFLUENZA VACCINE (#1) 2022 06/26/2021, 06/14/2020 DTAP/TDAP/TD IMMUNIZATION (2 07/01/2022 07/01/2012, - Td or Tdap) 03/02/2011 ANNUAL REVIEW OF HM ORDERS 11/27/2022 11/27/2021 FALL RISK ASSESSMENT 11/27/2022 11/27/2021 ZOSTER IMMUNIZATION Completed 10/25/2018, 08/12/2018 PHQ-2 (once per calendar Completed 11/27/2021 year) HEPATITIS B IMMUNIZATION Aged Out No long er eligible based on patient's age to complete this to pic IPV IMMUNIZATION Aged Out No longer eligi ble based on patient's age to complete this to pic MENINGITIS IMMUNIZATION Aged Out No longe r eligible based on patient's age to complete this to [facility] Insurance Payer Benefit Plan Subscriber ID Effective Phone Address Typ e / Group Dates MEDICARE MEDICARE [id number] 2010-Pres [phone] ATTN KAPIL MS Medicare ent [address] [place] [address] /CHAMP FOR [id number] 2021-Prese [phone] TRICAR E FOR Indemnity [place] [employer] nt 04 LIFE [address] [place] [address] Care Teams Installation Superintendent Relationship Specialty Start Date End Date Orlando rAshad MD PCP - General Internal Medicine 11/27/21 [address] [id number] Orlando Arhsad MD Assigned PCP 10/31/21 [address] [phone]
--- NOTE | 2022-04-25 10:00 | CRLHL7_ITS ---
For Patients: As a result of the Century Cures Act, medical imaging exams and procedure reports are released immediately into your electronic medical record. You may view this report before your referring provider. If you have questions, please contact your health care provider. Indication: COMPARE FOR RX, PLEURAL EFFUSION Technique: Noncontrast CT chest Please note that all CT scans at this facility use dose modulation, iterative reconstruction, and/or weight-based dosing when appropriate to reduce radiation dose to as low as reasonably achievable. Comparison: February 20, 2022 Findings: Mild linear subsegmental scarring is present within the lower lobes. No pleural effusion. No pneumothorax. The thyroid is similar with a small nodule within the inferior left isthmus. No mediastinal, hilar or axillary adenopathy. No fracture. Bilateral renal cysts. Nonobstructing stones left kidney. Vascular calcifications. Impression: Improved appearance of the chest compared to the prior study with improved aeration within both lower lobes and resolution of small pleural effusions. Decreased adenopathy. Mild residual linear subsegmental scarring in both lower lobes. Stable nonobstructing stones within the left kidney measuring up to 9 millimeters. Please note that all CT scans at this facility use dose modulation, iterative reconstruction, and/or weight-based dosing when appropriate to reduce radiation dose to as low as reasonably achievable. Dictated by Brian Santos MD @ 04/25/2022 10:53:27 AM (Electronically Signed)
== END 2022-04-25 09:33 | disposition home or self-care (01) ==
LOC: CT 09:33
PROVIDERS: PCP Family Medicine; Visit Provider Internal Medicine Pulmonary Disease
DX: J90 Pleural effusion, not elsewhere classified (principal); N20.0 Calculus of kidney; R59.9 Enlarged lymph nodes, unspecified; R91.8 Other nonspecific abnormal finding of lung field; R50.9 Fever, unspecified; R61 Generalized hyperhidrosis
CPT/HCPCS: 71250; 93306

== ENCOUNTER 2022-04-30 15:42 | Outpatient (CLI) | payer MEDICARE, OTHER, SELFPAY ==
--- OUTSIDE RECORDS SUMMARY | 2022-05-09 09:02 | XMS_ITS | Clinical Summary ---
:1945 Author Organization [employer] [facility] [place] [address] Care Team Providers Name Role Phone Lopez Avitia MD Primary Care Provider Allergies No known active allergies Medications Medication Sig Dispensed Refills Start Date End Date Status aspirin (ECOTRIN) 81 mg Take 1 tablet by 0 6 Active enteric coated tablet mouth once daily with a meal. Terazosin HCl 10 mg Take by mouth at 0 03/10/2016 Active capsule bedtime. fluticasone (FLOVENT) Inhale 1 Puff by 0 03/10/2016 Active 110 mcg/Actuation mouth 2 times inhaler daily. pravastatin (PRAVACHOL) Take by mouth at 0 6 Active 10 mg tablet bedtime. tiotropium bromide Inhale by mouth. 0 03/10/2016 Active (SPIRIVA RESPIMAT) 1.25 mcg/actuation mist Active Problems No known active problems Encounters Date Type Specialty Care Team Description 04/25/2022 Orders Only <No scans attac hed> 02/25/2022 Lab Requisition Lopez Avitia MD 02/24/2022 Lab Requisition Unknown, Doctor from Last 3 Months Immunizations Name Administration Dates Next Due Tdap 07/01/2012 Social History Tobacco Use Types Packs/Day Years Used Date Former Smoker Smokeless Tobacco: Former User Alcohol Use Standard Drinks/Week Comments No 0 (1 standard drink = 0.6 oz pure alcoho l) Sex Assigned at Date Recorded Not on file Obstetrics History Last Filed Vital Signs Vital Sign Reading Time Taken Comments Blood Pressure 142/82 03/10/2016 11:10 AM CDT Pulse 69 03/10/2016 11:10 AM CDT Temperature - - Respiratory Rate - - Oxygen Saturation 96% 03/10/2016 11:10 AM CDT Inhaled Oxygen Concentration - - Weight - - Height - - Body Mass Index - - Plan of Treatment Health Maintenance Due Date Last Done Comments Depression screening for age 12+ 1957 BMI (ht and wt on same day) for age 18+ 1963 Hepatitis C screening for age 18-79 1963 Zoster (shingles) series for age 50+ (1 of 2) 1995 Pneumococcal series for age 65+ (1 - PCV) 2010 COVID-19 vaccine series (2 - Moderna series) 01/11/2022 Influenza for age 65+ 05/01/2022 Tetanus booster 07/01/2022 07/01/2012 Tdap Completed 07/01/2012 Procedures Procedure Name Priority Date/Time Associated Comments Diagnosis ECHO COMPLETE WO Routine 04/25/2022 10:42 Pleural effusion Res ults for this CONTRAST AM CDT procedure are i n the results section. QFT MITOGEN Routine 02/24/2022 2:23 PM Results f or this PERFORMABLE CDT procedure are i n the results section. QFT TB2 PERFORMABLE Routine 02/24/2022 2:23 PM Re sults for this CDT procedure are i n the results section. QFT TB1 PERFORMABLE Routine 02/24/2022 2:23 PM Re sults for this CDT procedure are i n the results section. QUANTIFERON TB GOLD Routine 02/24/2022 2:23 PM Re sults for this PLUS CDT procedure are i n the results section. QUANTIFERON TB GOLD Routine 02/24/2022 2:23 PM Re sults for this PLUS CDT procedure are i n the results section. LAB TRACKING EVENT Routine 02/22/2022 4:00 AM CDT PERIPHERAL BLD Routine 02/22/2022 4:00 AM Results for this MORPHOLOGY CDT procedure are i n the results section. RETICULOCYTES Routine 02/22/2022 4:00 AM Results for this CDT procedure are i n the results section. from Last 3 Months Results ECHO COMPLETE WO CONTRAST (04/25/2022 10:42 AM CDT) P athologist Signature AORTIC VALVE 4 mmHg MEAN PG EJECTION 66 % FRACTION PEAK TR 2.5 m/s VELOCITY LVEDD 5.2 cm Anatomical Region Laterality Modality HEART Ultrasound Specimen (Source) Anatomical Collection Method Collection Time Re ceived Time Location / / Volume Laterality 04/25/2022 10:09 AM CDT Narrative 04/25/2022 11:08 AM CDT ECHOCARDIOGRAM GADIEL WALLS ?Acces trent#: ?? [id number] : ?1945 76 years Study Date : ?? 04/25/2022 10:09:46 AM Gender: M ? BP: ? 102/60 mmHg Height: 180.00 cm ? BSA: ?2.14 m? ?? Weight: 94.00 kg ?Tech: ? MJJ ?Referring MD: ANA CRISTINA MOE Site: ? [facility] Reading Location: MOBILE-OP Procedure: 2D, Color Doppler and Spectra l Doppler. Indication for study: Pleural effusion Cardiac Rhythm: Irregular.Study quality: Fair. Final Impressions: 1. Normal left ventricular size, mildly increased wall thickness, normal global systolic function, calculated EF of 66 %. 2. Right ventricular cavity size is mil dly enlarged, global systolic RV function is borderline reduced. 3. Mild-moderate tricuspid regurgitatio n. 4. The inferior vena cava is dilated, r espiratory size variation greater than 50%. Comparison There are no prior studies on this patie nt for comparison purposes. Chamber Sizes and Function Normal left ventricular size, mildly inc reased wall thickness, normal global systolic function, calculated EF of 66 %. Left atrial size is normal. Left atrial pressure is normal. Right ventricular cavit y size is mildly enlarged, global systol ic RV function is borderline reduced. The right atrium is moderately enlarged. Right atrial volume index is 40 ml/m? ??. Right atrial area is 23 cm? ??. The pulmo nary artery is of normal size and origin . The sinus of Valsalva is normal sized. The ascending aorta is normal sized. Valves, RV Pressures and Diastolic Funct ion The aortic valve is normal in structure and trileaflet, no stenosis and trivial regurgitation. The mitral valve is normal in structure, trace mitral regurgitation. Spectral Doppler shows Grade 1 pattern of LV diastolic filling. The tricuspid valve is normal in structure. Tricuspid regurgitation is mild-moderate. The tricuspid regurgitant velocity is 2.5 m/s, the estimated right ventricular systolic pr essure is 24 mmHg plus right atrial pres sure. There is mildly increased estimated pulmonary pressure by tricuspid regurgitation velocity and right atrial pressure. The pulmonic valve is normal. Trace pulmonary regurgitation. Masses, Effusion, Shunts There is no pericardial effusion. The in ferior vena cava is dilated, respiratory size variation greater than 50%. No left to right shunting was detected by limited color flow Doppler interrogation of the interatrial septum. MEASUREMENTS AND CALCULATIONS 2-D Measurements and LV Function: LVID (d) 5.2 cm Planimetered EF 66 % LVID (s) 3.2 cm LV FS% (2D) ? 39 % IVS (d) ??1.3 cm LVOT diameter ?? 2.0 cm LVPW (d) 1.4 cm HR ?5 3 bpm Ao Sinus 3.6 cm LA Vol index ?12 ml/ m2 Asc Ao ?? 3.4 cm RA Vol index ?40 ml /m2 LA ? 3.8 cm RA area ? 2 3 cm?RV Max 4C (d) ?? 4.2 cm Diastology: Mitral ?Tissue Doppler ?Pulmonary veins E Peak 0.9 m/s ??e', Septum ? 0.09 m /s Pulm s ?82.5 cm/s A Peak 0.9 m/s ??e', Lateral ?0.10 m /s Pulm d ?47.0 cm/s E/A ?1.0 ?E/e' Average ?? 8.9 1 ? Pulm s/d ratio ??1.76 DT ? 292 msec IVRT ?? 108 msec Aortic Valve: Vmax ? 1.4 m/s ??SP (V) ?? 1.57 cm? AI P 1/2 478 msec VTI ?0.29 m ?? SP (I) ?? 1.64 cm? ?? LVOT V max 0.7 m/s ??Max PG ?8 mmHg LVOT VTI ?? 0.16 m ?? Mean PG ?? 4 mmHg SV ? 48 ml ?Dim Index 0.54 SV index ?? 22 ml/m? ?? CO ?2.5 l/min ?CI ?1.2 l/min/m? ?? Mitral Valve: MVA ?2.6 cm? ?? MV P 1/2 85 msec Tricuspid Valve and estimated PA pressur es: TR Vmax 2.5 m/s TAPSE 1.8 cm TR maxG 24 mmHg Pulmonic Valve: PIEDV 1.1 m/s . This study was interpreted by an [facility] redited facility. CC: [facility]. ??Final ?? Procedure Note Kurtis Inman MD - 04/25/2022Fo rmatting of this note might be different from the original. ECHOCARDIOGRAM GADIEL WALLS : 1945 76 years Study Date: 04/01 10:09:46 AM Gender: M BP: 102/60 mmHg Height: 180.00 cm BSA: 2.14 m? ?? Weight: 94.00 kg Tech: LIBORIO Referring MD: ANA CRISTINA MOE Site: [facility] Reading Location: MOBILE-OP Procedure: 2D, Color Doppler and Spectra l Doppler. Indication for study: Pleural effusion Cardiac Rhythm: Irregular.Study quality: Fair. Final Impressions: 1. Normal left ventricular size, mildly increased wall thickness, normal global systolic function, calculated EF of 66 %. 2. Right ventricular cavity size is mil dly enlarged, global systolic RV function is borderline reduced. 3. Mild-moderate tricuspid regurgitatio n. 4. The inferior vena cava is dilated, r espiratory size variation greater than 50%. Comparison There are no prior studies on this patie nt for comparison purposes. Chamber Sizes and Function Normal left ventricular size, mildly inc reased wall thickness, normal global systolic function, calculated EF of 66 %. Left atrial size is normal. Left atrial pressure is normal. Right ventricular cavity size is mildly enlarged, global systolic RV func tion is borderline reduced. The right atrium is moderately enlarged. Right atrial volume index is 40 ml/m? ??. Right atrial area is 23 cm? ??. The pulmonary artery is of normal size and origin. The sinus of Valsalva i s normal sized. The ascending aorta is normal sized. Valves, RV Pressures and Diastolic Funct ion The aortic valve is normal in structure and trileaflet, no stenosis and trivial regurgitation. The mitral valve is normal in structure, trace mitral regurgitation. Spectral Doppler shows Grade 1 pattern of LV diastolic filling. The tricuspid valve i s normal in structure. Tricuspid regurgitation is mild-moderate. The tricuspid regurgitant velocity is 2.5 m/s, the estimated right ventricular systolic pressure is 24 mmHg plus right atrial pressure. There is mildly i ncreased estimated pulmonary pressure by tricuspid regurgitation velocity and right atrial pressure. The pulmonic valve is normal. Trace pulmonary regurgitation. Masses, Effusion, Shunts There is no pericardial effusion. The in ferior vena cava is dilated, respiratory size variation greater than 50%. No left to right shunting was detected by limited color flow Doppler interrogation of the interatrial septum. MEASUREMENTS AND CALCULATIONS 2-D Measurements and LV Function: LVID (d) 5.2 cm Planimetered EF 66 % LVID (s) 3.2 cm LV FS% (2D) 39 % IVS (d) 1.3 cm LVOT diameter 2.0 cm LVPW (d) 1.4 cm HR 53 bpm Ao Sinus 3.6 cm LA Vol index 12 ml/m2 Asc Ao 3.4 cm RA Vol index 40 ml/m2 LA 3.8 cm RA area 23 cm? ?? RV Max 4C (d) 4.2 cm Diastology: Mitral Tissue Doppler Pulmonary veins E Peak 0.9 m/s e', Septum 0.09 m/s Pulm s 82.5 cm/s A Peak 0.9 m/s e', Lateral 0.10 m/s Pulm d 47.0 cm/s E/A 1.0 E/e' Average 8.91 Pulm s/d ratio 1.76 DT 292 msec IVRT 108 msec Aortic Valve: Vmax 1.4 m/s SP (V) 1.57 cm? ?? AI P 1/2 478 msec VTI 0.29 m SP (I) 1.64 cm? ?? LVOT V max 0.7 m/s Max PG 8 mmHg LVOT VTI 0.16 m Mean PG 4 mmHg SV 48 ml Dim Index 0.54 SV index 22 ml/m? ?? CO 2.5 l/min CI 1.2 l/min/m? ?? Mitral Valve: MVA 2.6 cm? ?? MV P 1/2 85 msec Tricuspid Valve and estimated PA pressur es: TR Vmax 2.5 m/s TAPSE 1.8 cm TR maxG 24 mmHg Pulmonic Valve: PIEDV 1.1 m/s . This study was interpreted by an [facility] redited facility. CC: [facility]. Final Ana Cristina Moe MD ECHO ORD QFT MITOGEN PERFORMABLE (02/24/2022 2:23 PM CDT) athologist Signature MITOGEN 2.15 IU/mL 02/26/2022 [facility] 11:54 AM CDT LABORATORY-CENTR AL LABORATORY Specimen Anatomical Collection Method Collection Time Receive d Time (Source) Location / / Volume Laterality Blood BLOOD SPECIMEN / Client Collect / 02/24/2022 2:23 PM 0 02/25/2022 9:12 Unknown Unknown CDT PM CDT Lopez Avitia MD CHEMISTRY Performing Organization Address City/State/ZIP Code Phon e Number [facility] [address] [facility] [place] [address] LABORATORY-CENTRAL 2000 LABORATORY QFT TB2 PERFORMABLE (02/24/2022 2:23 PM CDT) P athologist Signature TB2 0.02 IU/mL 02/26/2022 [facility] 11:54 AM CDT LABORATORY-CENTR AL LABORATORY Specimen Anatomical Collection Method Collection Time Receive d Time (Source) Location / / Volume Laterality Blood BLOOD SPECIMEN / Client Collect / 02/24/2022 2:23 PM 0 02/25/2022 9:12 Unknown Unknown CDT PM CDT Lopez Avitia MD CHEMISTRY Performing Organization Address City/[facility]/ZIP Code Phon e Number [facility] [address] [facility] [place] [address] LABORATORY-CENTRAL 2000 LABORATORY QFT TB1 PERFORMABLE (02/24/2022 2:23 PM CDT) P athologist Signature TB1 0.02 IU/mL 02/26/2022 [facility] 11:54 AM CDT LABORATORY-CENTR AL LABORATORY Specimen Anatomical Collection Method Collection Time Receive d Time (Source) Location / / Volume Laterality Blood BLOOD SPECIMEN / Client Collect / 02/24/2022 2:23 PM 0 02/25/2022 9:12 Unknown Unknown CDT PM CDT Lopez Avitia MD CHEMISTRY Performing Organization Address City/[facility]/ZIP Code Phon e Number [facility] [address] [place] [address] LABORATORY-CENTRAL 2000 LABORATORY QUANTIFERON TB GOLD PLUS (02/24/2022 2:23 PM CDT) [facility] gist Method Time Signature QFTP NIL 0.01 02/26/2022 [facility] 12:27 PM LABORATORY-CE CDT NTRAL LABORATORY TB1 0.02 IU/mL 02/26/2022 [facility] 12:27 PM LABORATORY-CE CDT NTRAL LABORATORY TB2 0.02 IU/mL 02/26/2022 [facility] 12:27 PM LABORATORY-CE CDT NTRAL LABORATORY MITOGEN 2.15 IU/mL 02/26/2022 [facility] 12:27 PM LABORATORY-CE CDT NTRAL LABORATORY QFTP TB AG1 - NIL 0.01 02/26/2022 [facility] 12:27 PM LABORATORY-CE CDT [facility] LABORATORY QFTP TB AG2 - NIL 0.01 02/26/2022 [facility] 12:27 PM LABORATORY-CE CDT [facility] LABORATORY QFTP MITOGEN - NIL 2.14 02/26/2022 [facility] 12:27 PM LABORATORY-CE CDT NTRAL LABORATORY QFTP QUANTIFERON Negative Negative 02/26/2022 [facility] 12:27 PM LABORATORY-CE CDT NTRAL LABORATORY Specimen Anatomical Collection Method Collection Time Receive d Time (Source) Location / / Volume Laterality Blood BLOOD SPECIMEN / Client Collect / 02/24/2022 2:23 PM 0 02/25/2022 9:12 Unknown Unknown CDT PM CDT [facility] LABORATORY-CENTRAL LABORAT ORY - 02/26/2022 12:27 PM CDT M. tuberculosis infection not likely, but cannot be excluded in cases of immunosuppression. CAUTION: The performance of QuantiFERON- TB Gold Plus has not been evaluated in specimens from: - Individuals with impaired or altered i mmune factors (HIV infections, transplant patients, those receieving immunosuppressive drugs such as corticosteroids) and those with other clinical conditions (e.g., diabetes, hematological disorders). - Individuals younger than 17 years old. ??Refer to CDC website for testing recommendations in children 6-17 years old. - women CAUTION: The performance of QuantiFERON- TB Gold Plus has not been evaluated in specimens from: - Individuals with impaired or altered i mmune factors (HIV infections, transplant patients, those receieving immunosuppressive drugs such as corticosteroids) and those with other clinical conditions (e.g., diabetes, hematological disorders). - Individuals younger than 17 years old. ??Refer to CDC website for testing recommendations in children 6-17 years old. - women Lopez Avitia MD CHEMISTRY Performing Organization Address City/State/ZIP Code Phon e Number [facility] [address] [place] [address] LABORATORY-CENTRAL 1999 LABORATORY LAB TRACKING EVENT (02/22/2022 4:00 AM CDT) Specimen Anatomical Collection Method Collection Time Receive d Time (Source) Location / / Volume Laterality Other (Other) Client Collect / 02/22/2022 4:00 AM 01/30 4:32 Unknown CDT PM CDT Doctor Unknown LAB BILL ONLY Performing Organization Address City/State/ZIP Code Phon e Number [facility] [address] [place] [address] LABORATORY-CENTRAL 2000 LABORATORY PERIPHERAL BLD MORPHOLOGY (02/22/2022 4:00 AM CDT) Component Value Ref Test Analysis Performed At [facility] gist Range Method Time Signature Case Report Special Hematology Report ? Case: [id number] ? 02/25/2022 [facility] Authorizing Provider: ??Unkn own, Doctor ?Collected: ? 02/22/2022 0400 ? 5:02 PM HEAL TH Ordering Location: ? L CENTRAL LAB ?Received: ?02/25/2022 1105 ? CDT [facility] Pathologist: ? Tom Melendez MD ? ENTRAL Specimen: ?Peripheral Bl ood ? LABORATORY Final PERIPHERAL BLOOD: 02/25/2022 [facility] lectronically Diagnosis 1. Mild normocytic anemia 5:02 PM HEAL TH signed by 2. Mild thrombocytopenia CDT LABOR ATORY-C Melendez, 3. Slight nonspecific eosinophilia ENTRAL Tom Magaña MD on 4. Mild lymphocytopenia, nonspecific LABORATORY 02/25/2022 at 5. See comment 5:02 PM Comment The specific etiology of the anemia and thrombocytopenia are not apparent from the blood smear findings. Normochromic, normocytic anemia may be associated with a variety of conditions, including anemia 02/25/2022 [facility] of chronic disease, anemia o f renal insufficiency, hypothyroidism, active bleeding, early iron deficiency and medication effect. There are no features to suggest hemolysis. 5:02 PM HEALTH CDT LABORATORY-C Thrombocytopenia may be seco ndary to medication effect, immune-mediated processes, hypersplenism and may be transient in settings of infection (bacterial or viral). There is no evidence of platelet clum ENTRAL ping. There are no features to suggest a primary bone marrow disorder on this smear review. LABORATORY This case was also reviewed by Katie Mcarthur MT, (A SCP). Clinical The patient is a 76-year-old male. 02/25 [facility] Information Per CBC scan: Fever for 4 to 5 days, rigors, chills, night sweats, pancytopenia 5:02 PM HEALTH CDT LABORATORY-C No additional history or current lab studies available. ENTRAL LABORATORY CBC and HEMATOLOGY PARAMETERS 02/25/2022 [facility] Differential Tested at: ??[facility] 5:02 PM HEALTH ? RESULTS ??EXPECTED VALUES C DT LABORATORY-C WBC: ? 4.4 ?4.5-84p7172/cumm ?DECREASED ENTRAL RBC: ? 3.94 ? 4.30-5.90 mil/cumm ??DECREASED LABORATORY HGB: ? 12.5 ? 13.5-17.5 gm/di ? DECREASED HCT: ? 36.7 ? 37-53% ?DECREASED MCV: ? 93.1 ? 80-100 fl ? NORMOCYTIC MCH: ? 31.7 ? 26-34 pg ? MCHC: ?34.1 ? 32-36 gm/dl ? NORMOCHROMIC RDW: ? 13.6 ? 11.5-15.5% ? PLT: ? 111 ?140-170x1785/uL ? DECREASED MPV: ? 10.3 ? 6.5-11 fl ? Retic: ?? 1.05 ? 0.5-1.5% ? Differential ?Tested at: ??Central ?Absolute (%) ?Expected (%) ?(x10*9/L) ? (x10*9/L) Neutrophils: ?2.63 (59.5) ? 1.7-7.0 (42-72%) ? Lymphocytes: ?0.71 (16.1) ? 0.9-2.9 (20-44%) ??DECRE ASED Monocytes: ?0.42 (9.5) ? <0.9 (0-11%) ? Eosinophils: ?0.63 (14.3) ?<0.5 (0-2%) ?EL EVATED Basophils: ?0.01 (.2) ?<0.3 (<3.0%) ? Imm Grans: ?0.02 (.5) ?<0.3 (0-3%) ? (Metas, Myelos,Pros) Microscopic The final 02/25/2022 [facility] Description diagnosis is based 5:02 PM HEALTH on microscopic CDT LABORATORY-C examination of ENTRAL appropriate LABORATORY sections of all specimens. Additional 02/25/2022 [facility] Information Interpreted at [facility], Central Laboratory - [address], [place] [address] 5:02 PM HEALTH CDT LABORATORY-C ENTRAL LABORATORY Specimen Anatomical Collection Method Collection Time Receive d Time (Source) Location / / Volume Laterality Blood 02/22/2022 4:00 AM (Peripheral CDT 11:05 AM CDT Blood) Doctor Unknown HEMATOLOGY Performing Organization Address City/State/ZIP Code Phon e Number [facility] [address] [place] [address] LABORATORY-CENTRAL 2000 LABORATORY RETICULOCYTES (02/22/2022 4:00 AM CDT) P athologist Signature RETIC% 1.1 0.5 - 2.0 02/25/2022 [facility] 10:07 AM CDT LABORATORY-CENT RAL LABORATORY RETIC 0.04 0.03 - 02/25/2022 [facility] 0.08 10:07 AM CDT LABORATORY-CENT mil/cu mm RAL LABORATORY Specimen Anatomical Collection Method Collection Time Receive d Time (Source) Location / / Volume Laterality Blood BLOOD SPECIMEN / Client Collect / 02/22/2022 4:00 AM 0 02/25/2022 Unknown Unknown CDT 10:03 AM CDT Doctor Unknown HEMATOLOGY Performing Organization Address City/State/ZIP Code Phon e Number [facility] [address] [place] [address] LABORATORY-CENTRAL 2000 LABORATORY from Last 3 Months Insurance Payer Benefit Plan / Subscriber ID Effective Dates Phone Addre ss Type Group WC WORKERS COMP WC WORKERS COMP [id number] 2016-[place]en [id number] [place] [address] MEDICARE - PB MEDICARE PB [id number] 2010-Zahida ATT N: CLAIMS USE ONLY ONLY t [address] [facility] [place] [address] FOR [id number] 2016-Present [address] [place] [address] Care Teams Dryer Feeder Relationship Specialty Start Date End Date Lopez Avitia MD PCP - General Family Practice 04/25/22 [address] [place] [address]
--- OUTSIDE RECORDS SUMMARY | 2022-05-09 09:02 | XMS_ITS | Encounter Summary ---
:1945 Author Organization [facility] Address [address] [place] [address]. [place] [address] Care Team Providers Name Role Phone Orlando Arshad MD Primary Care Provider [phone] Orlando Arshad MD Unavailable Reason for Referral Diagnostic Imaging MRI (Routine) - Closed Specialty Diagnoses / Procedures Referred By Contact Refer red To Contact Diagnoses Weakness of both arms rOlando Arshad MD Procedures MR Cervical Spine w/o Contrast [address] [place] [address] Referral ID Status Reason Start Date Expiration Date Visits Requ ested Visits Authorized [id number] Closed 12/02/2021 12/02/2022 1 1 Encounter Details Date Type Department Care Team Description 12/02/2021 Orders Only [facility] Orlando Arshad of [facility] [address] MD (Primary Dx) [address] [place] [id number] [phone] Social History Tobacco Use Types Packs/Day Years [...] Mild spinal canal stenosis. Mild right and [id number] left foraminal stenosis . Bilateral C5-C6: Mild [...] Mild spinal canal stenosis. Mild right and [id number] left foraminal stenosis . Bilateral C5-C6: Mild [...] limbs documented in this encounter Care Teams Supervisor [place]cel[place] Department Relationship Specialty Start Date End Date Oralndo Arshad MD PCP - General Internal Medicine 11/27/[address] [place] [address] Orlando Arshad MD Assigned PCP 10/31/[address] [place] [address] documented as of this encounter
--- OUTSIDE RECORDS SUMMARY | 2022-05-09 09:02 | XMS_ITS | Encounter Summary ---
:1945 Author Organization [place] Address [address] [place] [address]. [place] [address] Care Team Providers Name Role Phone Orlando Arshad MD Primary Care Provider [phone] Orlando Arshad MD Unavailable Reason for Referral Diagnostic Imaging XR (Routine) - Pending Review Specialty Diagnoses / Procedures Referred By Contact Refer red To Contact Diagnoses Weakness of both arms Orlando Arshad MD Procedures XR Cervical Spine 2/3 Views [address] [place] [address] Referral ID Status Reason Start Date Expiration Date Visits V isits Requested Authorized [id number] Pending 11/27/2021 11/27/2022 1 1 Review Reason for Visit Reason Comments Mass Fatigue Encounter Details Date Type Department Care Team Description 11/27/2021 Office Visit [facility] Orlando Arshad n in both upper extremities (Primary Dx); Clinic [address] MD Weakness of both arms; [address] [place] [id number] [phone] Social History Tobacco Use Types Packs/Day Years [...] or fail to improve. Orlando Arshad MD [facility] Gadiel is a 76 year old [...] City/State/ZIP Code Phon e Number [facility] [place] [address] Lab [address] [facility] [address] Building, Room 3-580 ESR: Erythrocyte [...] LAB - BLOOD ORDERABLES Performing Organization Address City/[facility]/ZIP Code Ph[place] [address] [phone] [place] [facility] [address] [place] [facility], [address] [place] [address], [facility] Lab [address] [place] [facility], [address] CK total (11/27/2021 3:14 [...] LAB - BLOOD ORDERABLES Performing Organization Address City/[facility]/ZIP [facility] Phon e Number [facility], [place] [phone] [facility] [place] [facility] [address] [place] [address] Lab (no room number, 1st floor of clinic) [facility] [place], [place] [phone] [facility] [address] [place] [facility] [address] [place] [address] Lab (no room number, 1st floor of [...] limbs documented in this encounter Care Teams Aquatic Laborer Relationship Specialty Start Date End Date Orlando Arshad MD PCP - General Internal Medicine 11/27/21 [address] [place], [place] [phone] Orlando Arshad MD Assigned PCP 10/31/21 [address] [facility] [place] [id number] documented as of this encounter
--- OUTSIDE RECORDS SUMMARY | 2022-05-09 09:02 | XMS_ITS | Encounter Summary ---
:1945 Author Organization [place] Address [address] [place] [address]. [place] [address] Care Team Providers Name Role Phone Orlando Arshad MD Primary Care Provider [phone] Orlando Arshad MD Unavailable Reason for Visit Reason Onset Date Comments Medication Question 01/22/2022 gabapentin Encounter Details Date Type Department Care Team Description 01/22/[address] [facility] Orlando Arshad Med ication Question Clinic Calista St MD (gabapentin) [address] [place] [address] [place] [address] [place], [place] [phone] (Wo rk) [address] [phone] Social History Tobacco Use Types Packs/Day Years [...] day and sent an updated prescription to [facility]. Anjana Gomez RN [facility] Telephone Encounter - Orlando Arshad MD - [...] forward, all medications will be sent to [facility] as well. documented in this encounter Plan of Treatment Not on filedocumented as of this encounter Visit Diagnoses Diagnosis Pain in both upper extremities - Primary documented in this encounter Care Teams Driller Hand Relationship Specialty Start Date End Date Orlando Arshad MD PCP - General Internal Medicine 11/27/21 [address] [place] [address] Orlando Arshad MD Assigned PCP 10/31/21 [address] [place] [address] documented as of this encounter
--- OUTSIDE RECORDS SUMMARY | 2022-05-09 09:02 | XMS_ITS | Encounter Summary ---
:1945 Author Organization [place] Address [address] [place] [address]. [place] [address] Care Team Providers Name Role Phone Orlando Arshad MD Primary Care Provider [phone] Orlando Arshad MD Unavailable Encounter Details [...] on filedocumented in this encounter Care Teams Field Agent Relationship Specialty Start Date End Date Orlando Arshad MD PCP - General Internal Medicine 11/27/21 [address] [place] [address] Orlando Arshad MD Assigned PCP 10/31/21 [place] [address] documented as of this encounter
--- OUTSIDE RECORDS SUMMARY | 2022-05-09 09:02 | XMS_ITS | Encounter Summary ---
:1945 Author Organization [place] Address [address] [place] [address]. [place] [address] Care Team Providers Name Role Phone Orlando Arshad MD Primary Care Provider [phone] Orlando Arshad MD Unavailable Reason for Visit Diagnostic Imaging XR (Routine) - Pending Review Specialty Diagnoses / Procedures Referred By Contact Refer red To Contact Diagnoses Weakness of both arms Orlando Arshad MD Procedures XR Cervical Spine 2/3 Views [address] [place] [address] Referral ID Status Reason Start Date Expiration Date Visits V isits Requested Authorized [id number] Pending 11/27/2021 11/27/2022 1 1 Review Encounter Details Date Type Department Care Team Description 11/27/2021 Ancillary [facility] Sirdevi Arshad f both Procedure Clinic [place] [address] MD arms [address] [place] [address] [place] [address] [phone] Social History Tobacco Use Types Packs/Day Years [...] limbs documented in this encounter Care Teams Control Systems Drafting Officer Relationship Specialty Start Date End Date Orlando Arshad MD PCP - General Internal Medicine 11/27/21 [address] [place] [address] Orlando Arshad MD Assigned PCP 10/31/21 [address] [place], [place] [phone] documented as of this encounter
--- OUTSIDE RECORDS SUMMARY | 2022-05-09 09:02 | XMS_ITS | Encounter Summary ---
:1945 Author Organization [place] Address [address] [place] [address] Care Team Providers Name Role Phone Orlando Arshad MD Primary Care Provider [phone] Orlando Arshad MD Unavailable Reason for Referral Diagnostic Imaging MRI (Routine) - Closed Specialty Diagnoses / Procedures Referred By Contact Refer red To Contact Diagnoses Weakness of both arms Orlando Arshad MD Procedures MR Cervical Spine w/o Contrast [address] [place] [address] Referral ID Status Reason Start Date Expiration Date Visits Requ ested Visits Authorized [id number] Closed 12/02/2021 12/02/2022 1 1 Reason for Visit Diagnostic Imaging MRI (Routine) - Closed Specialty Diagnoses / Procedures Referred By Contact Refer red To Contact Diagnoses Weakness of both arms Orlando Arshad MD Procedures MR Cervical Spine w/o Contrast [address] [place] [address] Referral ID Status Reason Start Date Expiration Date Visits Requ ested Visits Authorized [id number] Closed 12/02/2021 12/02/2022 1 1 Encounter Details Date Type Department Care Team Description 12/09/2021 Hospital Encounter [facility] Jeancarlos, Weak ness of both [facility] [place] [address] [place] [address] [facility] [address] [place] [address] [phone] Social History Tobacco Use Types Packs/Day Years [...] Mild spinal canal stenosis. Mild right and zuqv-wm-uyrhitdi left foraminal stenosis . Bilateral C5-C6: Mild [...] Mild spinal canal stenosis. Mild right and qufl-to-hhemewww left foraminal stenosis . Bilateral C5-C6: Mild [...] limbs documented in this encounter Care Teams Manager Of Allied Health Services Relationship Specialty Start Date End Date Orlando Arshad MD PCP - General Internal Medicine 11/27/21 [address] [place], [place] [address] Orlando Arshad MD Assigned PCP 10/31/21 [address] [place], [place] [address] documented as of this encounter
--- OUTSIDE RECORDS SUMMARY | 2022-05-09 09:02 | XMS_ITS | Encounter Summary ---
:1945 Author Organization [place] Address [address] [place] [address] Care Team Providers Name Role Phone Orlando Arshad MD Primary Care Provider [phone] Orlando Arshad MD Unavailable Encounter Details [...] on filedocumented in this encounter Care Teams Data Integration Developer Relationship Specialty Start Date End Date Orlando Arshad MD PCP - General Internal Medicine 11/27/21 [address] [place] [address] Orlando Arshad MD Assigned PCP 10/31/21 [address] [place] [address] documented as of this encounter
--- OUTSIDE RECORDS SUMMARY | 2022-05-09 09:02 | XMS_ITS | Encounter Summary ---
:1945 Author Organization [place] Address [address] [place] [address]. [place] [address] Care Team Providers Name Role Phone Juliane Arshad MD Primary Care Provider [phone] Juliane Arshad MD Unavailable Reason for Visit Reason Onset Date Comments Results 12/11/2021 MRI Encounter Details Date Type Department Care Team Description 12/11/2021 Telephone [facility] Celestine Arshad, Results (MRI) [address] [place] [address] [place] [address] [place] [address] [phone] Social History Tobacco Use Types Packs/Day Years [...] gabapentin 100 mg TID sent to local [facility], not [facility]. This is a very low dose to start and it may need jhonny adjusted based on his response to it. Asked patient to contact the clinic if he wants the prescription sent to [facility] instead. Also asked him to call back with update on his response in a few weeks. Anjana Gomez RN [facility] Telephone Encounter - Juliane Arshad MD - [...] to [facility]. Ok to call and [phone] Telephone Encounter - Coco Randhawa RN - [...] of MRI Ok to call and lm [phone] Addendum Note - Juliane Arshad MD - 12/11/2021 12:04 PM CDT Addended by: JULIANE ARSHAD on: 12/12/2021 05:00 PM Modules accepted: Orders documented in this encounter Plan of Treatment Not on filedocumented as of this encounter Visit Diagnoses Diagnosis Weakness of both arms - Primary Other musculoskeletal symptoms referable to limbs documented in this encounter Care Teams Storeroom Supervisor Relationship Specialty Start Date End Date Juliane Arshad MD PCP - General Internal Medicine 11/27/21 [place] [address] Juliane Arshad MD Assigned PCP 10/31/21 [address] [place] [address] documented as of this encounter
--- OUTSIDE RECORDS SUMMARY | 2022-05-09 09:02 | XMS_ITS | Clinical Summary ---
:1945 Author Organization [place] Address [address] [place] [address] Care Team Providers Name Role Phone Orlando Arshad MD Primary Care Provider Orlando Arshad MD Unavailable Allergies No known [...] on patient's age to complete this to [facility] Insurance Payer Benefit Plan Subscriber ID Effective Phone Address Typ e / Group Dates MEDICARE MEDICARE [id number] 2010-Pres [phone] ATTN KAPIL MS Medicare ent [address] [facility] [address] /CHAMP FOR [id number] 2021-Prese [phone] TRICAR E FOR Indemnity CO LIFE nt 04 LIFE [address] [place] [address] Care Teams Puff Iron Operator Relationship Specialty Start Date End Date Orlando Arshad MD PCP - General Internal Medicine 11/27/21 [address] [id number] Orlando Arshad MD Assigned PCP 10/31/21 [address] [id number]
--- OUTSIDE RECORDS SUMMARY | 2022-05-09 09:03 | XMS_ITS | Encounter Summary ---
:1945 Author Organization [place] Address [address] [place] [address]. [place] [address] Care Team Providers Name Role Phone Unavailable Primary Care Provider Unavailable Encounter Details Date Type Department Care Team Description 08/17/2006 Results Only [facility] Vitor Almodovar MD Hospital Results [facility] UROLOGIC SPECIALIST [address] [facility] [address], [place] [address] (Wo rk) Social History Tobacco Use Types Packs/Day Years Used Date Never Assessed Sex Assigned at Date Recorded Not on file documented as of this encounter Plan of Treatment Not on filedocumented as of this encounter Procedures Procedure Name Priority Date/Time Associated Diagnosis Comme nts US SCROTUM AND Routine 08/17/2006 4:25 PM Resu lts for this CONTENTS PARTY PLAN SELLING DISTRIBUTOR procedure are i n the results section. documented in this encounter Results SONO SCROTUM (08/17/2006 4:25 PM PARTY PLAN SELLING DISTRIBUTOR) Specimen (Source) Anatomical Collection Method Collection Time Re ceived Time Location / / Volume Laterality 08/17/2006 4:25 PM PARTY PLAN SELLING DISTRIBUTOR Impressions RADIOLOGY RESULTS - 08/18/2006 7:30 AM [...]
--- OUTSIDE RECORDS SUMMARY | 2022-05-09 09:03 | XMS_ITS | Encounter Summary ---
:1945 Author Organization [place] Address [address] [place] [address]. [place] [address] Care Team Providers Name Role Phone Unavailable Primary Care Provider Unavailable Encounter Details Date Type Department Care Team Description 11/26/2006 Results [facility] Vitor Almodovar MD Hospital Results [facility] UROLOGIC SPECIALIST [address] [facility] [address] [place], [place] [address] (Wo rk) Social History [...]
== END 2022-04-30 15:43 | disposition home or self-care (01) ==
LOC: LKVREF 05-09 09:01
PROVIDERS: PCP Family Medicine; Visit Provider Registered Nurse
DX: R35.0 Frequency of micturition (principal); R30.0 Dysuria; N30.90 Cystitis, unspecified without hematuria
CPT/HCPCS: 87086; 87186

== ENCOUNTER 2022-05-20 14:10 | Outpatient (CLI) | payer MEDICARE, OTHER, SELFPAY ==
--- OUTSIDE RECORDS SUMMARY | 2022-05-20 14:14 | XMS_ITS | Encounter Summary ---
:1945 Author Organization [place] Address [address] [place] [address]. [place] [address] Care Team Providers Name Role Phone Juliane Arshad MD Primary Care Provider [phone] Juliane Arshad MD Unavailable Reason for Visit Reason Onset Date Comments Results 12/11/2021 MRI Encounter Details Date Type Department Care Team Description 12/11/2021 Telephone [facility] Celestine Arshad, Results (MRI) [address] [place] [address] [place] [address] [place] [address] [phone] Social History Tobacco Use Types Packs/Day Years [...] gabapentin 100 mg TID sent to local [facility], not [facility]. This is a very low dose to start and it may need jhonny adjusted based on his response to it. Asked patient to contact the clinic if he wants the prescription sent to [facility] instead. Also asked him to call back with update on his response in a few weeks. Anjana Gomez RN [facility] Telephone Encounter - Juliane Arshad MD - [...] to [facility]. Ok to call and [phone] Telephone Encounter - Coco Randhawa RN - [...] of MRI Ok to call and lm [phone] Addendum Note - Juliane Arshad MD - 12/11/2021 12:04 PM CDT Addended by: JULIANE ARSHAD on: 12/12/2021 05:00 PM Modules accepted: Orders documented in this encounter Plan of Treatment Not on filedocumented as of this encounter Visit Diagnoses Diagnosis Weakness of both arms - Primary Other musculoskeletal symptoms referable to limbs documented in this encounter Care Teams Hose Seamer Relationship Specialty Start Date End Date Juliane Arshad MD PCP - General Internal Medicine 11/27/21 [place] [address] Juliane Arshad MD Assigned PCP 10/31/21 [address] [place] [address] documented as of this encounter
--- OUTSIDE RECORDS SUMMARY | 2022-05-20 14:14 | XMS_ITS | Clinical Summary ---
:1945 Author Organization [facility] [place] [address] Care Team Providers Name Role Phone Lopez [...] CDT ECHOCARDIOGRAM GADIEL WALLS ?Acces trent#: ?? [id number] : ?1945 76 years Study Date : ?? 04/25/2022 10:09:46 AM Gender: M ? BP: ? 102/60 mmHg Height: 180.00 cm ? BSA: ?2.14 m? ?? Weight: 94.00 kg ?Tech: ? MJJ ?Referring MD: ANA CRISTINA MOE Site: ? [facility] Reading Location: MOBILE-OP Procedure: 2D, [...] . This study was interpreted by an [facility] redited facility. CC: [facility]. ??Final ?? Procedure Note Kurtis Inman MD - 04/25/2022Fo rmatting of this note might be different from the original. ECHOCARDIOGRAM GADIEL WALLS : 1945 76 years Study Date: 04/01 10:09:46 AM Gender: M BP: 102/60 mmHg Height: 180.00 cm BSA: 2.14 m? ?? Weight: 94.00 kg Tech: LIBORIO Referring MD: ANA CRISTINA MOE Site: [facility] Reading Location: MOBILE-OP Procedure: 2D, [...] . This study was interpreted by an [facility] redited facility. CC: [facility]. Final Ana Cristina Moe MD ECHO ORD QFT MITOGEN PERFORMABLE (02/24/2022 2:23 PM CDT) athologist Signature MITOGEN 2.15 IU/mL 02/26/2022 [facility] 11:54 AM CDT LABORATORY-CENTR AL LABORATORY Specimen Anatomical Collection Method Collection Time Receive d Time (Source) Location / / Volume Laterality Blood BLOOD SPECIMEN / Client Collect / 02/24/2022 2:23 PM 0 02/25/2022 9:12 Unknown Unknown CDT PM CDT Lopez Avitia MD CHEMISTRY Performing Organization Address City/State/ZIP Code Phon e Number [facility] [address] [facility] [place] [address] LABORATORY-CENTRAL 2000 LABORATORY QFT TB2 PERFORMABLE (02/24/2022 2:23 PM CDT) P athologist Signature TB2 0.02 IU/mL 02/26/2022 [facility] 11:54 AM CDT LABORATORY-CENTR AL LABORATORY Specimen Anatomical Collection Method Collection Time Receive d Time (Source) Location / / Volume Laterality Blood BLOOD SPECIMEN / Client Collect / 02/24/2022 2:23 PM 0 02/25/2022 9:12 Unknown Unknown CDT PM CDT Lopez Avitia MD CHEMISTRY Performing Organization Address City/[facility]/ZIP Code Phon e Number [facility] [address] [facility] [place] [address] LABORATORY-CENTRAL 2000 LABORATORY QFT TB1 PERFORMABLE (02/24/2022 2:23 PM CDT) P athologist Signature TB1 0.02 IU/mL 02/26/2022 [facility] 11:54 AM CDT LABORATORY-CENTR AL LABORATORY Specimen Anatomical Collection Method Collection Time Receive d Time (Source) Location / / Volume Laterality Blood BLOOD SPECIMEN / Client Collect / 02/24/2022 2:23 PM 0 02/25/2022 9:12 Unknown Unknown CDT PM CDT Lopez Avitia MD CHEMISTRY Performing Organization Address City/[facility]/ZIP Code Phon e Number [facility] [address] [place] [address] LABORATORY-CENTRAL 2000 LABORATORY QUANTIFERON TB GOLD PLUS (02/24/2022 2:23 PM CDT) [facility] gist Method Time Signature QFTP NIL 0.01 02/26/2022 [facility] 12:27 PM LABORATORY-CE CDT NTRAL LABORATORY TB1 0.02 IU/mL 02/26/2022 [facility] 12:27 PM LABORATORY-CE CDT NTRAL LABORATORY TB2 0.02 IU/mL 02/26/2022 [facility] 12:27 PM LABORATORY-CE CDT NTRAL LABORATORY MITOGEN 2.15 IU/mL 02/26/2022 [facility] 12:27 PM LABORATORY-CE CDT NTRAL LABORATORY QFTP TB AG1 - NIL 0.01 02/26/2022 [facility] 12:27 PM LABORATORY-CE CDT NTRNE LABORATORY QFTP TB AG2 - NIL 0.01 02/26/2022 [facility] 12:27 PM LABORATORY-CE CDT NTRNE LABORATORY QFTP MITOGEN - NIL 2.14 02/26/2022 [facility] 12:27 PM LABORATORY-CE CDT NTRAL LABORATORY QFTP QUANTIFERON Negative Negative 02/26/2022 [facility] 12:27 PM LABORATORY-CE CDT NTRAL LABORATORY Specimen Anatomical Collection Method Collection Time Receive d Time (Source) Location / / Volume Laterality Blood BLOOD SPECIMEN / Client Collect / 02/24/2022 2:23 PM 0 02/25/2022 9:12 Unknown Unknown CDT PM CDT [facility] LABORATORY-CENTRAL LABORAT ORY - 02/26/2022 12:27 PM [...] Address City/State/ZIP Code Phon e Number [facility] [address] [place] [address] LABORATORY-CENTRAL 1999 LABORATORY LAB TRACKING EVENT (02/22/2022 4:00 AM CDT) Specimen Anatomical Collection Method Collection Time Receive d Time (Source) Location / / Volume Laterality Other (Other) Client Collect / 02/22/2022 4:00 AM 01/30 4:32 Unknown CDT PM CDT Doctor Unknown LAB BILL ONLY Performing Organization Address City/State/ZIP Code Phon e Number [facility] [address] [place] [address] LABORATORY-CENTRAL 2000 LABORATORY PERIPHERAL BLD MORPHOLOGY (02/22/2022 4:00 AM CDT) Component Value Ref Test Analysis Performed At [facility] gist Range Method Time Signature Case Report Special Hematology Report ? Case: [id number] ? 02/25/2022 [facility] Authorizing Provider: ??Unkn own, [...] VALUES C DT LABORATORY-C WBC: ? 4.4 ?4.5-81i8621/cumm ?DECREASED ENTRAL RBC: ? 3.94 ? 4.30-5.90 mil/cumm ??DECREASED LABORATORY HGB: ? 12.5 ? 13.5-17.5 gm/di ? DECREASED HCT: ? 36.7 ? 37-53% ?DECREASED MCV: ? 93.1 ? 80-100 fl ? NORMOCYTIC MCH: ? 31.7 ? 26-34 pg ? MCHC: ?34.1 ? 32-36 gm/dl ? NORMOCHROMIC RDW: ? 13.6 ? 11.5-15.5% ? PLT: ? 111 ?[id number]/uL ? DECREASED MPV: ? 10.3 ? 6.5-11 [...] specimens. Additional 02/25/2022 [facility] Information Interpreted at [facility], Central Laboratory - [address], [place] [address] 5:02 PM HEALTH CDT LABORATORY-C ENTRAL LABORATORY Specimen Anatomical Collection Method Collection Time Receive d Time (Source) Location / / Volume Laterality Blood 02/22/2022 4:00 AM (Peripheral CDT 11:05 AM CDT Blood) Doctor Unknown HEMATOLOGY Performing Organization Address City/State/ZIP Code Phon e Number [facility] [address] [place] [address] LABORATORY-CENTRAL 2000 LABORATORY RETICULOCYTES (02/22/2022 4:00 AM CDT) P athologist Signature RETIC% 1.1 0.5 - 2.0 02/25/2022 [facility] 10:07 AM CDT LABORATORY-CENT RAL LABORATORY RETIC 0.04 0.03 - 02/25/2022 [facility] 0.08 10:07 AM CDT LABORATORY-CENT mil/cu mm RAL LABORATORY Specimen Anatomical Collection Method Collection Time Receive d Time (Source) Location / / Volume Laterality Blood BLOOD SPECIMEN / Client Collect / 02/22/2022 4:00 AM 0 02/25/2022 Unknown Unknown CDT 10:03 AM CDT Doctor Unknown HEMATOLOGY Performing Organization Address City/State/ZIP Code Phon e Number [facility] [address] [place] [address] LABORATORY-CENTRAL 2000 LABORATORY from Last 3 Months Insurance Payer Benefit Plan / Subscriber ID Effective Dates Phone Addre ss Type Group WC WORKERS COMP WC WORKERS COMP [id number] 2016-Presen [address] [place] [address] MEDICARE - PB MEDICARE PB [id number] 2010-Zahida ATT N: CLAIMS USE ONLY ONLY t [address] [place] [address] FOR [id number] 2016-Present [address] [place] [address] Care Teams Folder Seamer Automatic Relationship Specialty Start Date End Date Lopez Avitia MD PCP - General Family Practice 04/25/22 [address] [place] [address]
--- OUTSIDE RECORDS SUMMARY | 2022-05-20 14:14 | XMS_ITS | Encounter Summary ---
:1945 Author Organization [place] Address [address] [place] [address]. [place] [address] Care Team Providers Name Role Phone Orlando Arshad MD Primary Care Provider [phone] Orlando Arshad MD Unavailable Reason for Visit Reason Onset Date Comments Medication Question 01/22/2022 gabapentin Encounter Details Date Type Department Care Team Description 01/22/2022 Telephone [facility] Orlando Arshad Med ication Question Clinic [facility] MD (gabapentin) [address] [place] [address] [place] [address] [place], [place] [phone] (Wo rk) [address] [phone] Social History Tobacco Use Types Packs/Day Years [...] day and sent an updated prescription to [facility]. Anjana Gomez RN [facility] Telephone Encounter - Orlando Arshad MD - [...] forward, all medications will be sent to [facility] as well. documented in this encounter Plan of Treatment Not on filedocumented as of this encounter Visit Diagnoses Diagnosis Pain in both upper extremities - Primary documented in this encounter Care Teams Director Maternal Child Relationship Specialty Start Date End Date Orlando Arshad MD PCP - General Internal Medicine 11/27/21 [address] [place] [address] Orlando Arshad MD Assigned PCP 10/31/21 [address] [place] [address] documented as of this encounter
--- OUTSIDE RECORDS SUMMARY | 2022-05-20 14:14 | XMS_ITS | Encounter Summary ---
:1945 Author Organization [facility] Address [address] [place] [address]. [place] [address] Care Team Providers Name Role Phone Orlando Arshad MD Primary Care Provider [phone] Orlando Arshad MD Unavailable Reason for Referral Diagnostic Imaging MRI (Routine) - Closed Specialty Diagnoses / Procedures Referred By Contact Refer red To Contact Diagnoses Weakness of both arms Orlando Arshad MD Procedures MR Cervical Spine w/o Contrast [address] [place] [address] Referral ID Status Reason Start Date Expiration Date Visits Requ ested Visits Authorized [id number] Closed 12/02/2021 12/02/2022 1 1 Encounter Details Date Type Department Care Team Description 12/02/2021 Orders Only [facility] Orlando Arshad of both arms Clinic [address]ista [address] MD (Primary Dx) [address] [place] [address] [place] [id number] [phone] Social History Tobacco Use Types Packs/Day Years [...] Mild spinal canal stenosis. Mild right and wucw-yb-idhnpdhq left foraminal stenosis . Bilateral C5-C6: Mild [...] Mild spinal canal stenosis. Mild right and ebsr-md-porjmfvk left foraminal stenosis . Bilateral C5-C6: Mild [...] limbs documented in this encounter Care Teams Surveyor Oil Well Directional Relationship Specialty Start Date End Date Orlando Arshad MD PCP - General Internal Medicine 11/27/21 [address] [place] [address] Orlando Arshad MD Assigned PCP 10/31/21 [address] [place] [address] documented as of this encounter
--- OUTSIDE RECORDS SUMMARY | 2022-05-20 14:14 | XMS_ITS | Clinical Summary ---
:1945 Author Organization [facility] Address [address] [place] [address] Care Team Providers Name Role Phone Orlando Arshad MD Primary Care Provider [phone] Orlando Arshad MD Unavailable Allergies No [...] on patient's age to [facility] Insurance Payer Benefit Plan Subscriber ID Effective Phone Address Typ e / Group Dates MEDICARE MEDICARE [id number] 2010-Pres [phone] ATTN KAPIL [place] Medicare ent 40 [address] [place] [address] /CHAMP FOR [id number] 2021-Prese [phone] TRICAR E FOR Indemnity MD LIFE nt 04 LIFE [address] [place] [address] Care Teams Clinical Project Coordinator Relationship Specialty Start Date End Date Orlando Arshad MD PCP - General Internal Medicine 11/27/21 [address] [id number] Orlando Arshad MD Assigned PCP 10/31/21 [address] [id number]
--- OUTSIDE RECORDS SUMMARY | 2022-05-20 14:14 | XMS_ITS | Encounter Summary ---
:1945 Author Organization [facility] Address [address] [place] [address]. [place] [address] Care Team Providers Name Role Phone Orlando Arshad MD Primary Care Provider [phone] Orlando Arshad MD Unavailable Reason for Referral Diagnostic Imaging XR (Routine) - Pending Review Specialty Diagnoses / Procedures Referred By Contact Refer red To Contact Diagnoses Weakness of both arms Orlando Arshad MD Procedures XR Cervical Spine 2/3 Views [address] [place] [address] Referral ID Status Reason Start Date Expiration Date Visits V isits Requested Authorized [id number] Pending 11/27/2021 11/27/2022 1 1 Review Reason for Visit Reason Comments Mass Fatigue Encounter Details Date Type Department Care Team Description 11/27/2021 Office Visit [facility] Orlando Arshad n in both upper extremities (Primary Dx); Clinic [address] MD Weakness of both arms; [address] [place]ast[place] [id number] [phone] Social History Tobacco Use Types Packs/Day Years [...] or fail to improve. Orlando Arshad MD [facility] Gadiel is a 76 year old who [...] City/State/ZIP Code Phon e Number [facility] [place] [address] [phone] Lab [address] [facility] [address] Building, Room 3-580 ESR: [...] LAB - BLOOD ORDERABLES Performing Organization Address City/[facility]/ZIP Code [place] [address] [phone] [facility] [address] [place] [facility], [address] [place] [address], [facility] [address] [place] [facility], [address] CK total (11/27/2021 3:14 [...] LAB - BLOOD ORDERABLES Performing Organization Address City/[facility]/ZIP [facility] Phon e Number [facility] [place], [place] [phone] [facility] [address] [place] [address] Lab (no room number, 1st floor of clinic) [facility] [place], [place] [phone] [facility] [phone] [address] [place] [address] Lab (no room number, 1st floor of [...] limbs documented in this encounter Care Teams Cell Manager Relationship Specialty Start Date End Date Orlando Arshad MD PCP - General Internal Medicine 11/27/21 [address] [place], [place] [phone] Orlando Arshad MD Assigned PCP 10/31/21 [address] [facility] [place] [phone] documented as of this encounter
--- OUTSIDE RECORDS SUMMARY | 2022-05-20 14:14 | XMS_ITS | Encounter Summary ---
:1945 Author Organization [facility] Address [address] [place] [address]. [place] [address] Care Team Providers Name Role Phone Orlando Arshad MD Primary Care Provider [phone] Orlando Arshad MD Unavailable Encounter Details [...] on filedocumented in this encounter Care Teams Contract Post Office Clerk Relationship Specialty Start Date End Date Orlando Arshad MD PCP - General Internal Medicine 11/27/21 [address] [place] [address] Orlando Arshad MD Assigned PCP 10/31/21 [place] [id number] documented as of this encounter
--- OUTSIDE RECORDS SUMMARY | 2022-05-20 14:14 | XMS_ITS | Encounter Summary ---
:1945 Author Organization [place] Address [address] [place] [address] Care Team Providers Name Role Phone Orlando Arshad MD Primary Care Provider [phone] Orlando Arshad MD Unavailable Reason for Referral Diagnostic Imaging MRI (Routine) - Closed Specialty Diagnoses / Procedures Referred By Contact Refer red To Contact Diagnoses Weakness of both arms Orlando Arshad MD Procedures MR Cervical Spine w/o Contrast [address] [place] [address] Referral ID Status Reason Start Date Expiration Date Visits Requ ested Visits Authorized [id number] Closed 12/02/2021 12/02/2022 1 1 Reason for Visit Diagnostic Imaging MRI (Routine) - Closed Specialty Diagnoses / Procedures Referred By Contact Refer red To Contact Diagnoses Weakness of both arms Orlando Arshad MD Procedures MR Cervical Spine w/o Contrast [address] [place] [address] Referral ID Status Reason Start Date Expiration Date Visits Requ ested Visits Authorized [id number] Closed 12/02/2021 12/02/2022 1 1 Encounter Details Date Type Department Care Team Description 12/09/2021 Hospital Encounter [facility] [place], Weak ness of both [facility] [place] [address] [place] [address] [facility] [address] [place] [phone] Social History Tobacco Use Types Packs/Day Years [...] Mild spinal canal stenosis. Mild right and phzc-ct-imiivweu left foraminal stenosis . Bilateral C5-C6: Mild [...] Mild spinal canal stenosis. Mild right and ases-qa-scmtzxam left foraminal stenosis . Bilateral C5-C6: Mild [...] limbs documented in this encounter Care Teams Logistics Planning Engineer Relationship Specialty Start Date End Date Orlando Arshad MD PCP - General Internal Medicine 11/27/21 [address] [place], [place] [address] Orlando Arshad MD Assigned PCP 10/31/21 [address] [place], [place] [address] documented as of this encounter
--- OUTSIDE RECORDS SUMMARY | 2022-05-20 14:14 | XMS_ITS | Encounter Summary ---
:1945 Author Organization [place] Address [address] [place] [address]. [place] [address] Care Team Providers Name Role Phone Unavailable Primary Care Provider Unavailable Encounter Details Date Type Department Care Team Description 11/26/2006 Results [facility] Vitor Almodovar MD Hospital Results [facility] UROLOGIC SPECIALIST [address] [facility] [address] [place], [place] [address] (Wo rk) Social History [...]
--- OUTSIDE RECORDS SUMMARY | 2022-05-20 14:14 | XMS_ITS | Encounter Summary ---
:1945 Author Organization [place] Address [address] [place] [address]. [place] [address] Care Team Providers Name Role Phone Unavailable Primary Care Provider Unavailable Encounter Details Date Type Department Care Team Description 08/17/2006 Results Only [facility] Vitor Almodovar MD Hospital Results [facility] UROLOGIC SPECIALIST [address] [facility] [address] [place], [place] [address] (Wo rk) Social History Tobacco Use Types Packs/Day Years Used Date Never Assessed Sex Assigned at Date Recorded Not on file documented as of this encounter Plan of Treatment Not on filedocumented as of this encounter Procedures Procedure Name Priority Date/Time Associated Diagnosis Comme nts US SCROTUM AND Routine 08/17/2006 4:25 PM Resu lts for this CONTENTS SALES MARKET LEADER procedure are i n the results section. documented in this encounter Results SONO SCROTUM (08/17/2006 4:25 PM SALES MARKET LEADER) Specimen (Source) Anatomical Collection Method Collection Time Re ceived Time Location / / Volume Laterality 08/17/2006 4:25 PM SALES MARKET LEADER Impressions RADIOLOGY RESULTS - 08/18/2006 7:30 AM [...]
--- OUTSIDE RECORDS SUMMARY | 2022-05-20 14:14 | XMS_ITS | Encounter Summary ---
:1945 Author Organization [facility] Address [address] [place] [address] Care Team Providers Name Role Phone Orlando Arshad MD Primary Care Provider [phone] Orlando Arshad MD Unavailable Encounter Details [...] on filedocumented in this encounter Care Teams Winder Helper Relationship Specialty Start Date End Date Orlando Arshad MD PCP - General Internal Medicine 11/27/21 [address] [place] [address] Orlando Arshad MD Assigned PCP 10/31/21 [address] [place] [address] documented as of this encounter
[2022-05-20 22:03] LABS: Aspartate Amino Transferase* 23 U/L (12-35); Bilirubin Direct* 0.3 mg/dL (0.0-0.5); Bilirubin Total* 1.3 mg/dL (0.1-1.5); Total Protein* 5.9 g/dL (6.0-8.3)
[2022-05-20 22:04] LABS: Alanine Aminotransferase* 17 U/L (4-50); Alkaline Phosphatase* 71 U/L (40-150)
== END 2022-05-20 14:11 | disposition home or self-care (01) ==
PROVIDERS: PCP Family Medicine; Visit Provider Family Medicine
DX: R79.89 Other specified abnormal findings of blood chemistry (principal); N39.0 Urinary tract infection, site not specified
CPT/HCPCS: 80076; 87086

== ENCOUNTER 2022-09-08 14:58 | Outpatient (CLI) | payer MEDICARE, OTHER, SELFPAY ==
[2022-09-08 23:11] LABS: Iron* 78 ug/dL (49-181)
[2022-09-09] LABS: Vitamin B12* 330 pg/mL (243-894)
[2022-09-11 21:54] LABS: Folate, RBC 512 ng/mL (>=366); Hematocrit (client supplied) 37.4 %
== END 2022-09-08 14:59 | disposition home or self-care (01) ==
PROVIDERS: PCP Family Medicine; Visit Provider Family Medicine
DX: Z00.00 Encounter for general adult medical examination without abnormal findings (principal); D64.9 Anemia, unspecified; B95.2 Enterococcus as the cause of diseases classified elsewhere; Z98.890 Other specified postprocedural states
CPT/HCPCS: 82607; 82728; 82747; 83540

== ENCOUNTER 2023-02-10 11:33 | Outpatient (CLI) | payer MEDICARE, OTHER, SELFPAY ==
--- NOTE | 2023-02-10 06:32 | W.ANESCHARGE ---
Anesthesia Charges Start Date/Time Anesthesia Start Date: 02/10/23 Anesthesia Start Time: 12:15 Stop Date/Time Anesthesia Stop Date: 02/10/23 Anesthesia Stop Time: 12:31 Summary Extremes of Age - Over 70 or under 1: MDA
--- NOTE | 2023-02-10 12:47 | W.ANESCHARGE ---
Anesthesia Charges Start Date/Time Anesthesia Start Date: 02/10/23 Anesthesia Start Time: 12:15 Stop Date/Time Anesthesia Stop Date: 02/10/23 Anesthesia Stop Time: 12:31
== END 2023-02-10 11:34 | disposition home or self-care (01) ==
LOC: OP CLINIC 11:33
PROVIDERS: PCP Family Medicine; Visit Provider Surgery
DX: R19.8 Other specified symptoms and signs involving the digestive system and abdomen (principal); K25.9 Gastric ulcer, unspecified as acute or chronic, without hemorrhage or perforation
CPT/HCPCS: 00731; 43239; 88305; 99100; J2704

== ENCOUNTER 2023-07-13 13:39 | Outpatient (CLI) | payer MEDICARE, OTHER, SELFPAY ==
--- NOTE | 2023-07-13 14:00 | CRLHL7_ITS ---
For Patients: As a result of the Cures Act, medical imaging exams and procedure reports are released immediately into your electronic medical record. You may view this report before your referring provider. If you have questions, please contact your health care provider. Indication: EXPOSURE TO ASBESTOS. FOLLOW UP CT Technique: Noncontrast CT chest Please note that all CT scans at this facility use dose modulation, iterative reconstruction, and/or weight-based dosing when appropriate to reduce radiation dose to as low as reasonably achievable. Comparison: 04/25/2022 Findings: Linear subsegmental densities within both lower lobes. No infiltrate. No suspicious nodule. No pleural effusion or pneumothorax. No enlarged mediastinal or hilar lymph nodes. Adrenal glands normal. Nonobstructing stones left kidney renal cortical cysts. Vascular calcifications. Ankylosis thoracic spine. No fracture. Impression: Bilateral lower lobe linear subsegmental scarring, similar to the prior study. No pulmonary fibrosis or suspicious pulmonary nodule. No calcified pleural plaques. Please note that all CT scans at this facility use dose modulation, iterative reconstruction, and/or weight-based dosing when appropriate to reduce radiation dose to as low as reasonably achievable. Dictated by Brian Santos MD @ 07/14/2023 11:49:48 AM (Electronically Signed)
== END 2023-07-13 13:40 | disposition home or self-care (01) ==
LOC: CT 13:40
PROVIDERS: PCP Family Medicine; Visit Provider Family Medicine
DX: R05.9 Cough, unspecified (principal); R59.0 Localized enlarged lymph nodes; Z77.090 Contact with and (suspected) exposure to asbestos
CPT/HCPCS: 71250

== ENCOUNTER 2023-09-28 08:00 | Outpatient (CLI) | payer MEDICARE, OTHER, SELFPAY ==
--- OUTSIDE RECORDS SUMMARY | 2023-09-29 19:07 | XMS_ITS | Clinical Summary ---
Author Name Unknown Organization [facility] Address [place], [place] [address] Care Team Providers Care Assembly Machine Tool Setter Name Role Phone Lopez Avitia MD Primary Care Provider [phone] Allergies No known active allergies Medications Medication Sig Dispensed Refills Start Date End Date Status aspirin (ECOTRIN) 81 mg enteric coated tablet Take 1 tablet by mouth once daily with a meal. 0 03/10/2016 Active Terazosin HCl 10 mg capsule Take by mouth at bedtime. 0 03/10/2016 Active fluticasone (FLOVENT) 110 mcg/Actuation inhaler Inhale 1 Puff by mouth 2 times daily. 0 03/10/2016 Active pravastatin (PRAVACHOL) 10 mg tablet Take by mouth at bedtime. 0 03/10/2016 Active tiotropium bromide (SPIRIVA RESPIMAT) 1.25 mcg/actuation mist Inhale by mouth. 0 03/10/2016 Active Active Problems No known active problems Immunizations Name Administration Dates Next Due Tdap 07/01/2012 Social History Tobacco Use Types Packs/Day Years Used Date Smoking Tobacco: Former Smokeless Tobacco: Former Alcohol Use Standard Drinks/Week Comments No 0 (1 standard drink = 0.6 oz pur e alcohol) Sex and Gender Information Value Date Recorded Sex Assigned at Not on file Gender Identity Not on file Sexual Orientation Not on file Obstetrics History Last Filed [...] series for age 50+ (1 of 2) 06/27/19 95 Pneumococcal series for age 65+ (1 of 1 - PCV) 010 Tetanus booster 07/01/2022 07/01/2012 COVID-19 vaccine series (2 - 2022-24 season) 3 12/14/2021 Influenza for age 65+ 05/01/2023 Tdap Completed 07/01/2012 Care Teams Assembly Machine Tool Setter Relationship Specialty Start Date End Date Lopez Avitia MD [address] [place] [address] PCP - General Family Practice 04/25/22
--- OUTSIDE RECORDS SUMMARY | 2023-09-29 19:08 | XMS_ITS | Referral Summary ---
Author Name Unknown Organization [facility] Address [address] [place] [address] Care Team Providers Care Fowl Blood Tester Name Role Phone Orlando Arshad MD Primary Care Provider + Orlando Arshad MD Unavailable [phone] Allergies No known active allergies Medications Medication Sig Dispensed Refills Start Date End Date Status fluticasone (FLOVENT HFA) 220 MCG/ACT inhaler Inhale 1 puff into the lungs 2 times daily 0 11/27/2021 Active tiotropium (SPIRIVA) 18 MCG inhaled capsule Inhale 1 capsule (18 mcg) into the lungs daily 0 11/27/2021 Active pravastatin (PRAVACHOL) 40 MG tablet Take 1 tablet (40 mg) by mouth daily 0 11/27/2021 Active terazosin (HYTRIN) 10 MG capsule Take 1 capsule (10 mg) by mouth At Bedtime 0 11/27/2021 Active gabapentin (NEURONTIN) 100 MG capsuleIndications:W eakness of both arms Take 1 capsule (100 mg) by mouth 3 times daily 90 capsule 0 12/12/2021 Active gabapentin (NEURONTIN) 100 MG capsuleIndications:P ain in both upper extremities Take 2 capsules (200 mg) by mouth 3 times daily 180 capsule 1 01/22/2022 Active Active Problems No known active problems Immunizations Name Administration Dates Next Due COVID-19 MONOVALENT 12+ (Pfizer) 06/03/2021,10/01,09/23/2020 Influenza Vaccine 65+ (Fluzone HD) 06/26/2021, Pneumococcal 23 valent 07/01/2012 TDAP (Adacel,Boostrix) 07/01/2012 Tetanus 03/02/2011 Zoster recombinant adjuvanted (SHINGRIX) 019,08/12/2018 Social History Tobacco Use Types Packs/Day Years Used Date Smoking Tobacco: Former Smokeless Tobacco: Former Snuff Quit: 11/27/1996 Alcohol Use Standard Drinks/Week Comments Never 0 (1 standard drink = 0.6 oz pur e alcohol) PHQ-2 Answer Date Recorded PHQ-2 Score 0 11/27/2021 Adolescent Education Answer Date Record ed Getting School Help Needed Not on file 06/06 Sex and Gender Information Value Date Recorded Sex Assigned at Not on file Gender Identity Not on file Sexual Orientation Not on file Last Filed Vital Signs Vital Sign Reading Time Taken Comments Blood Pressure 120/78 11/27/2021 2:10 PM CDT Pulse 62 11/27/2021 2:10 PM CDT Temperature 36.4 ??C (97.5 ??F) 11/27/2021 2:10 PM CD T Respiratory Rate 16 11/27/2021 2:10 PM CDT Oxygen Saturation 95% 11/27/2021 2:10 PM CDT Inhaled Oxygen Concentration - - Weight 96.2 kg (212 lb) 11/27/2021 2:10 PM CDT Height 181.6 cm (5' 11.5) 11/27/2021 2:10 PM CD T Body Mass Index 29.16 11/27/2021 2:10 PM CDT Plan of Treatment Not on file Care Teams Fowl Blood Tester Relationship Specialty Start Date End Date Arshad, Orlando L, MD [address] [place] [address] PCP - General Internal Medicine 11/27/21 Orlando Arshad MD [address] [facility] [place] [place] [address] Assigned PCP 10/31/21
--- OUTSIDE RECORDS SUMMARY | 2023-09-29 19:08 | XMS_ITS | Clinical Summary ---
Author Name Unknown Organization [facility] Address [address] [place] [address] Care Team Providers Care Contract Admin Name Role Phone Orlando Arshad MD Primary Care Provider + Orlando Arshad MD Unavailable [phone] Allergies No known active allergies Medications Medication [...] Tetanus 03/02/2011 Zoster recombinant adjuvanted (SHINGRIX) 019,08/12/2018 Family History Medical History Relation Comments Cerebral [...] 1945 HEPATITIS C SCREENING 1963 LIPID 1980 LUNG CANCER SCREENING 1995 RSV VACCINE ( & 60+ ) (1 - 1-dose 60+ series) 2005 MEDICARE ANNUAL WELLNESS VISIT 2010 Pneumococcal Vaccine: 65+ Years (2 of 2 - PCV) 07/01/2013 07/01/2012 DTAP/TDAP/TD IMMUNIZATION (2 - Td or Tdap) 07/01/2022 07/01/2012, 03/02/2011 ANNUAL REVIEW OF HM ORDERS 11/27/2022 11/27/2021 FALL RISK ASSESSMENT 11/27/2022 11/27/2021 COVID-19 Vaccine (2022-10 4 season) 2023 06/03/2021, 10/14/2020, 09/23/2020 INFLUENZA VACCINE (#1) 2023 , 06/14/2020 PHQ-2 (once per calendar year) 2023 11/27/2021 ZOSTER IMMUNIZATION Completed 10/25/2018, 08/12/2018 HPV IMMUNIZATION Aged Out No longer e ligible based on patient's age to complete this topic IPV IMMUNIZATION Aged Out No longer e ligible based on patient's age to complete this topic MENINGITIS IMMUNIZATION Aged Out No l onger eligible based on patient's age to complete this topic RSV MONOCLONAL ANTIBODY Aged Out No l onger eligible based on patient's age to complete this topic Care Teams Contract Admin Relationship Specialty Start Date End Date Orlando Arshad MD [address] [id number] PCP - General Internal Medicine 11/27/21 Orlando Arshad MD [address] [id number] Assigned PCP 10/31/21
== END 2023-09-28 08:01 | disposition home or self-care (01) ==
LOC: NFLDREF 09-29 19:05
PROVIDERS: PCP Family Medicine; Referring Provider Family Medicine; Visit Provider Family Medicine
DX: E78.5 Hyperlipidemia, unspecified (principal); Z12.5 Encounter for screening for malignant neoplasm of prostate
CPT/HCPCS: 80061; 80076; G0103

== ENCOUNTER 2023-11-10 07:00 | Outpatient (CLI) | payer MEDICARE, OTHER, SELFPAY ==
--- NOTE | 2023-11-10 07:15 | US_ITS ---
Patient: ELENA WALLS Facility:?[facility] Patient ID:?[id number] Site Patient ID:?[id number] Site :?1945 Study:?US-Abdomen Aorta-11/10/2023 8:19:12 AM Ordering Physician:Lopez Dalton Final Report: Examination: US abdominal aorta Indication: Abdominal aortic aneurysm screening. Technique: Wray scale and color Doppler images of the aorta and common iliac arteries are obtained. Comparison: None Findings: Proximal aorta: 2.1 x 2.5 cm Mid aorta: 1.6 x 1.9 cm Distal aorta: 1.8 x 1.8 cm Right common iliac artery: 0.9 x 1.1 cm Left common iliac artery: 1.0 x 1.2 cm Impression: No abdominal aortic aneurysm. Dictated by Brian Santos MD @ 11/10/2023 8:45:46 AM Signed by:?Brian Santos MD @11/10/2023 8:45:46 AM (Electronic Signature)
== END 2023-11-10 07:01 | disposition home or self-care (01) ==
LOC: US 07:01
PROVIDERS: PCP Family Medicine; Visit Provider Family Medicine
DX: Z13.6 Encounter for screening for cardiovascular disorders (principal); Z87.891 Personal history of nicotine dependence
CPT/HCPCS: 76775

== ENCOUNTER 2024-01-07 13:53 | Outpatient (CLI) | payer MEDICARE, OTHER, SELFPAY ==
--- OUTSIDE RECORDS SUMMARY | 2024-01-07 13:58 | XMS_ITS | Clinical Summary ---
Author Name Unknown Organization [facility] Address [place], [place] [address] Care Team Providers Care Hunting Guide Name Role Phone Lopez Avitia MD Primary Care Provider [phone] Allergies No known active allergies Medications Medication [...] 07/01/2022 07/01/2012 COVID-19 vaccine series (2 - 2022- season) 3 12/14/2021 Influenza for age 65+ 05/01/2024 Tdap Completed 07/01/2012 Care Teams Hunting Guide Relationship Specialty Start Date End Date Lopez Avitia MD [address] [place] [address] PCP - General Family Practice 04/25/22
--- OUTSIDE RECORDS SUMMARY | 2024-01-07 13:58 | XMS_ITS | Referral Summary ---
Author Name Unknown Organization [place] Address [address] [place] [address] Care Team Providers Care White Kid Buffer Name Role Phone Orlando Arshad MD Primary Care Provider + Orlando Arshad MD Unavailable [phone] Allergies No known active allergies Medications Medication Sig Dispensed Refills Start Date End Date Status fluticasone (FLOVENT HFA) 220 MCG/ACT inhaler Inhale 1 puff into the lungs 2 times daily 11/27/2021 Active tiotropium (SPIRIVA) 18 MCG inhaled capsule Inhale 1 capsule (18 mcg) into the lungs daily 11/27/2021 Active pravastatin (PRAVACHOL) 40 MG tablet Take 1 tablet (40 mg) by mouth daily 11/27/2021 Active terazosin (HYTRIN) 10 MG capsule Take 1 capsule (10 mg) by mouth At Bedtime 11/27/2021 Active gabapentin (NEURONTIN) 100 MG capsuleIndications:W eakness of both arms Take 1 capsule (100 mg) by mouth 3 times daily 90 capsule 12/12/2021 Active gabapentin (NEURONTIN) 100 MG capsuleIndications:P [...] of Treatment Not on file Care Teams White Kid Buffer Relationship Specialty Start Date End Date Orlando Arshad MD [address] [place] [address] PCP - General Internal Medicine 11/27/21 Orlando Arshad MD [address] [place] [address] Assigned PCP 10/31/21
--- OUTSIDE RECORDS SUMMARY | 2024-01-07 13:58 | XMS_ITS | Clinical Summary ---
Author Name Unknown Organization [facility] Address [address] [place] [address] Care Team Providers Care Space Officer Name Role Phone Orlando Arshad MD Primary Care Provider + Orlando Arshad MD Unavailable [phone] Allergies No known active allergies Medications Medication [...] Last Done Comments ADVANCE CARE PLANNING 1945 GLUCOSE 1945 LIPID 1945 HEPATITIS C SCREENING 1963 LUNG CANCER SCREENING 1995 RSV VACCINE ( & 60+ ) (1 - 1-dose 60+ series) 2005 MEDICARE ANNUAL WELLNESS VISIT 2010 Pneumococcal Vaccine: 65+ Years (2 of 2 - PCV) 07/01/2013 07/01/2012 DTAP/TDAP/TD IMMUNIZATION (2 - Td or Tdap) 07/01/2022 07/01/2012, 03/02/2011 ANNUAL REVIEW OF HM ORDERS 11/27/2022 11/27/2021 FALL RISK ASSESSMENT 11/27/2022 11/27/2021 COVID-19 Vaccine (2022-10 4 season) 2023 06/03/2021, 10/14/2020, 09/23/2020 PHQ-2 (once per calendar year) 2023 11/27/2021 INFLUENZA VACCINE (Season Ended) 2024 06/26/2021, 06/14/2020 ZOSTER IMMUNIZATION Completed 10/25/2018, 08/12/2018 HPV IMMUNIZATION [...] age to complete this topic Care Teams Space Officer Relationship Specialty Start Date End Date Orlando Arshad MD [address] [id number] PCP - General Internal Medicine 11/27/21 Orlando Arshad MD [address] [id number] Assigned PCP 10/31/21
== END 2024-01-07 13:54 | disposition home or self-care (01) ==
PROVIDERS: PCP Family Medicine; Visit Provider Family Medicine
DX: R73.01 Impaired fasting glucose (principal); R53.83 Other fatigue; R63.4 Abnormal weight loss; Z13.29 Encounter for screening for other suspected endocrine disorder
CPT/HCPCS: 80053; 84443

== ENCOUNTER 2024-04-26 16:12 | Emergency (ER) | payer MEDICARE, OTHER, SELFPAY ==
[2024-04-26 16:23] VITALS: BP 148/76; PULSE 52; RESP 16; TEMP 36.1; O2SAT 95; BMI 27.9
[2024-04-26 17:03] VITALS: BP 144/83; PULSE 52; RESP 16; TEMP 36.1; O2SAT 95
--- NOTE | 2024-04-26 17:25 | ED_ITS ---
HPI - General Adult General Chief complaint: Abdominal Pain Stated complaint: R flank pain Time Seen by Provider: 04/26/24 16:40 History of Present Illness HPI narrative: Patient here with right sided, lower abdominal pain today 04/09 that wrapped around to back. Laid on the floor for awhile until it passed . History of kidney stones with lithotripsy. He states he might be constipated as well, took laxatives before coming in. 78-year-old man presenting to the emergency department with concern of concern of right lower abdominal pain. He has started recently to feel constipated. This would be rather atypical. Does not remember when he has been constipated. Had a few days ago only a small amount of stool out which was rather dark but otherwise it has been a week since had a bowel movement. He has not had any fever. Is not nauseated. This afternoon than had sudden onset of sharper pain hand the right low abdomen. This resolved in about 10 minutes. Does note a history of a kidney stones and lithotripsy. He has not noted urinary hesitance or dysuria no hematuria. Related Data Home Medications ?Medication ?Instructions ?Recorded ?Confirmed metronidazole 0.75 % topical cream applic topical 05/20/22 01/13/24 tiotropium bromide 2.5 2 inh inhalation QAM 10/01/23 01/13/24 mcg/actuation mist for inhalation (Spiriva Respimat) Previous Rx's ?Medication ?Instructions ?Recorded pantoprazole 40 mg tablet,delayed 40 mg PO QDAY #90 tabs 03/26/23 release (Protonix) triamcinolone acetonide 0.1 % 1 applic topical BID PRN rash #80 07/07/23 topical cream grams triamcinolone acetonide 0.1 % 1 applic topical BID PRN eczema 1 08/04/23 topical ointment week #80 grams fluticasone 500 mcg-salmeterol 50 1 inh inhalation Q12H #3 ea 09/17/23 mcg/dose blistr powdr for inhalation (Wixela Inhub) albuterol sulfate 90 mcg/actuation 2 puff inhalation Q6H PRN 10/01/23 aerosol inhaler shortness of breath or wheezing #3 ea pravastatin 40 mg tablet 40 mg PO QHS #90 tabs 10/01/23 terazosin 10 mg capsule 10 mg PO QHS #90 caps 10/01/23 tamsulosin 0.4 mg capsule 0.4 mg PO DAILY #15 caps 04/26/24 Allergies Allergy/AdvReac Type Severity Reaction Status Date / Time levofloxacin Allergy Blister Verified 01/13/24 12:57 Review of Systems Status of ROS: Reports: 6 or more systems reviewed and unremarkable except as noted in History and below [facility] Medical History Contact dermatitis (02/20/14) ?L25.9 - Unspecified contact dermatitis, unspecified cause (ICD-10) Thrombocytopenia ?D69.6 - Thrombocytopenia, unspecified (ICD-10) Pulmonary embolism (11/05/12) ?I26.99 - Other pulmonary embolism without acute cor pulmonale (ICD-10) Pancytopenia ?D61.818 - Other pancytopenia (ICD-10) Asbestos exposure ?Z77.090 - Contact with and (suspected) exposure to asbestos (ICD-10) Ulcer GERD (gastroesophageal reflux disease) ?K21.9 - Gastro-esophageal reflux disease without esophagitis (ICD-10) Anemia ?D64.9 - Anemia, unspecified (ICD-10) History of tinnitus ?Z86.69 - Personal history of other diseases of the nervous system and sense organs (ICD-10) History of thrombosis of pulmonary artery ?Z86.711 - Personal history of pulmonary embolism (ICD-10) UTI (urinary tract infection) due to Enterococcus ?N39.0 - Urinary tract infection, site not specified (ICD-10) ?B95.2 - Enterococcus as the cause of diseases classified elsewhere (ICD-10) Surgical History History of nasal septoplasty ?Z98.890 - Other specified postprocedural states (ICD-10) History of lithotripsy ?Z98.890 - Other specified postprocedural states (ICD-10) History of eye surgery ?Z98.890 - Other specified postprocedural states (ICD-10) History of cataract removal with insertion of prosthetic lens ?Z98.49 - Cataract extraction status, unspecified eye (ICD-10) ?Z96.1 - Presence of intraocular lens (ICD-10) History of ankle surgery ?Z98.890 - Other specified postprocedural states (ICD-10) Family History Father Stroke Mother Liver cancer Social History Smoking Status: Former smoker How often do you have a drink containing alcohol: never AUDIT-C Alcohol total score: 0 Non-prescribed substance use: denies use Little interest or pleasure in doing things: not at all Feeling down, depressed, or hopeless: not at all service: Yes Exam Narrative: Exam Narrative: I pleasant. Hearing aids in but hears well. NAD. Skin is warm dry. Well- perfused peripherally. No edema. Heart in slower rate regular rhythm. Lungs clear. Abdomen with present bowel sounds soft and on little uncomfortable to palpation in the right lower abdomen. No peritoneal signs. No masses appreciated. Const: Vital Signs, click to edit/add: Vital Signs - 24 hr 04/26/24 16:23 04/26/24 17:03 Temperature 97.0 F L 97.0 F L Pulse Rate [Pulse Oximeter] 52 L 52 L Respiratory Rate 16 16 Blood Pressure [Ri ght Upper Arm] 148/76 H 144/83 H Pulse Oximetry 95 95 Oxygen Delivery Me thod Room Air Room Air Documenting provider has reviewed patient's vital signs: yes Course Vital Signs Vital signs: Initial Vital Signs Temperature 97.0 F L 04/26/24 16:23 Temperature Source Temporal Artery Scan 04/26/24 16:23 Pulse Rate 52 L 04/26/24 16:23 Respiratory Rate 16 04/26/24 16:23 Blood Pressure 148/76 H 04/26/24 16:23 Blood Pressure Mean 100 04/26/24 16:23 Blood Pressure Position Sitting 04/26/24 16:23 Pulse Oximetry 95 04/26/24 16:23 Oxygen Delivery Method Room Air 04/26/24 16:23 Vital Signs Temperature 97.0 F L 04/26/24 16:23 Pulse Rate 52 L 04/26/24 16:23 Respiratory Rate 16 04/26/24 16:23 Blood Pressure 148/76 H 04/26/24 16:23 Pulse Oximetry 95 04/26/24 16:23 Oxygen Delivery Method Room Air 04/26/24 16:23 Temperature 97.0 F L 04/26/24 18:24 Pulse Rate 57 L 04/26/24 18:24 Respiratory Rate 16 04/26/24 18:24 Blood Pressure 133/88 04/26/24 18:24 Pulse Oximetry 95 04/26/24 18:24 Oxygen Delivery Method Room Air 04/26/24 18:24 Medical Decision Making MDM Narrative Medical decision making narrative: Story is consistent with atypical bowel pattern particularly constipation. Does not seem to have other evidence of infection. Brief onset of this discomfort suggest more ureteral or intestinal colic though could be vascular anomaly as well. Story is inconsistent for appendicitis per had 's concern. Will check basic labs urinalysis abdominal x-ray for further evidence of constipation. Pending results or further symptoms would proceed with further imaging. Review abdominal x-ray by me shows good deal of stool throughout the colon. Left flank calcifications Radiology over-read below TECHNIQUE: Abdomen Pelvis radiograph 2 views COMPARISON: 02/20/2022 FINDINGS: Bowel: Moderate amount of stool is present throughout the colon which may be due to chronic constipation. The bowel gas pattern is normal without evidence of bowel obstruction. Soft tissue: Evaluation for right renal stones is limited by overlying bowel gas and colonic stool. Several calcific densities are seen over the left flank measuring up to 10 mm which may represent intrarenal stones. Bone: Unremarkable for age. IMPRESSION: 1. Several calcific densities are seen over the left flank measuring up to 10 mm which may represent intrarenal stones. Labs are reassuring. Renal function looks good. Urinalysis with clearly blood without evidence otherwise of infection. I discussed the findings with Mr. Hernandez. I think is actually experiencing combination of discomforts. Has been increasingly constipated and may well have dropped a stone into the right ureter. He is overall comfortable and would like to leave the emergency department. We did discuss however doing CT scan to verify suspicions. He wo uld prefer to follow-up as needed. See patient discharge plan for further discuss Lab Data Lab results reviewed: Yes I reviewed the patient's lab results Labs: Lab Results 04/26/24 04/26/24 Range/Units 18:15 18:29 WBC 5.26 (4.50-11.00) K/uL RBC 3.94 L (4.30-5.90) m/uL Hgb 12.4 L (13.5-17.5) gm/dL Hct 37.1 (37.0-53.0) % MCV 94 (80-100) fL MCH 32 (26-34) pg MCHC 33 (32-36) gm/dL RDW Coeff of Alie 14.1 (11.5-15.5) % Plt Count 127 L (140-440) K/uL Neut % (Auto) 63.7 (42.0-72.0) % Lymph % (Auto) 21.1 (20-44) % [place] % (Auto) 10.6 (0.0-11.0) % Eos % (Auto) 4.2 (0.0-7.0) % Baso % (Auto) 0.2 (0.0-3.0) % Neut # (Auto) 3.35 (1.7-7.0) K/uL Lymph # (Auto) 1.11 (0.90-2.90) K/uL [place] # (Auto) 0.60 (0.00-0.90) K/UL Eos # (Auto) 0.22 (0.00-0.50) K/uL Baso # (Auto) 0.01 (0.00-0.30) K/uL Abs Immat Gran (auto) 0.01 (0.00-0.30) K/uL Imm/Tot Granulo (auto) 0.2 % Sodium 139 (135-149) mmol/L Potassium 4.1 (3.6-5.1) mmol/L Chloride 109 (96-114) mmol/L Carbon Dioxide 24 (20-32) mmol/L Anion Gap 6 L (7-15) mEq/L BUN 18 (7-30) mg/dL Creatinine 1.0 (0.5-1.5) mg/dL Estimated Creat Clear 64.84 Estimated GFR 77 ml/min Glucose 92 (60-115) mg/dL Calcium 9.0 (8.4-10.6) mg/dL C-Reactive Protein 0.5 (0.5-1.0) mg/dL Urine Color [place] A (Yellow) Urine Appearance Cloudy A (Clear) Urine pH 6.0 (5.0-8.5) Ur Specific [place] 1.020 (1.000-1.030) Urine Protein Negative (Negative) Urine Glucose (UA) Negative (Negative) Urine Ketones Negative (Negative) Urine Blood 3+ A (Negative) Urine Nitrite Negative (Negative) Urine Bilirubin Negative (Negative) Urine Urobilinogen 0.2 (0.2-1.0) Ur Leukocyte Esterase Negative (Negative) Urine RBC 50-100 A (0-2) Urine WBC 0-2 (0-5) Ur Squamous Epith Cells None (None-Few) Urine Bacteria None (None) Discharge Plan Discharge Clinical Impression: Hematuria, Renal calculus, Constipation, Ureteral colic Patient Disposition: Home, Self-Care Condition: Improved Additional Instructions: You said you are not very good at drinking water; I think you should consider drinking 2 L of water daily. Would strain your urine over this next week or until you think you have passed the stone that we think might be present. In addition to hydrating, could drink a bottle of magnesium citrate to help your bowels move. Repeat next day if no good result. If you are experiencing hard stool though consider also placement of an enema and repeating in an hour if no good result.. Otherwise would take Citrucel or MiraLax equivalent dosing up to 3 times daily in at least 8 oz of liquid and then adjusting to stool consistency. I would do this for the next week or 2. If you continue to have pain in that right lower abdomen that is continuing over the next 4-5 days I would follow up for re-evaluation at that point. Be seen sooner however for marked increase in persistent pain, associated repeated vomiting, development of fever. Sending in tamsulosin to help with ureteral spasm. Take this until think stone has passed. Temporarily can take 600 mg of ibuprofen 3 times daily. Prescriptions: New tamsulosin 0.4 mg capsule 0.4 mg PO DAILY Qty: 15 0RF No Action metronidazole 0.75 % cream topical Patient Comments: APPLY 1 APPLICATION TOPICALLY TWICE DAILY pantoprazole [Protonix] 40 mg tablet,delayed release (DR/EC) 40 mg PO QDAY Qty: 90 2RF triamcinolone acetonide 0.1 % cream 1 applic topical BID PRN (Reason: rash) Qty: 80 1RF Spiriva Respimat 2.5 mcg/actuation mist 2 inh inhalation QAM pravastatin 40 mg tablet 40 mg PO QHS Qty: 90 3RF terazosin 10 mg capsule 10 mg PO QHS Qty: 90 3RF albuterol sulfate 90 mcg/actuation HFA aerosol inhaler 2 puff inhalation Q6H PRN (Reason: shortness of breath or wheezing) Qty: 3 2RF triamcinolone acetonide 0.1 % ointment 1 applic topical BID PRN (Reason: eczema) 7 Days Qty: 80 1RF fluticasone propion-salmeterol [Wixela Inhub] 500-50 mcg/dose blister with device 1 inh inhalation Q12H Qty: 3 3RF Follow Up/Referrals: Lopez Avitia MD [Primary Care Provider] - Stand Alone Forms: [employer] Info Instructions
[2024-04-26 17:30] VITALS: BP 134/80; PULSE 49; RESP 16; O2SAT 94
--- NOTE | 2024-04-26 17:44 | CRLHL7_ITS ---
For Patients: As a result of the Century Cures Act, medical imaging exams and procedure reports are released immediately into your electronic medical record. You may view this report before your referring provider. If you have questions, please contact your health care provider. INDICATION: Abdominal fullness, transient right lower abdominal pain, constipated TECHNIQUE: Abdomen Pelvis radiograph 2 views COMPARISON: 02/20/2022 FINDINGS: Bowel: Moderate amount of stool is present throughout the colon which may be due to chronic constipation. The bowel gas pattern is normal without evidence of bowel obstruction. Soft tissue: Evaluation for right renal stones is limited by overlying bowel gas and colonic stool. Several calcific densities are seen over the left flank measuring up to 10 mm which may represent intrarenal stones. Bone: Unremarkable for age. IMPRESSION: 1. Several calcific densities are seen over the left flank measuring up to 10 mm which may represent intrarenal stones. Dictated by Osvaldo Pastrana MD @ 04/26/2024 7:25:47 PM Dictated by: Osvaldo Pastrana MD @ 04/26/2024 19:25:53 (Electronically Signed)
--- OUTSIDE RECORDS SUMMARY | 2024-04-26 17:49 | XMS_ITS | Clinical Summary ---
Author Organization [facility] Address [place], [place] [address] Care Team Providers Care Ultrasound Specialist Name Role Phone Lopez Avitia MD Primary Care Provider [phone] Allergies No known active allergies Medications Medication [...] 65+ 05/01/2024 Tdap Completed 07/01/2012 Care Teams Ultrasound Specialist Relationship Specialty Start Date End Date Lopez Avitia MD PCP - General Family Practice 04/25/22
--- OUTSIDE RECORDS SUMMARY | 2024-04-26 17:49 | XMS_ITS | Referral Summary ---
Author Organization [facility] Address [address] [place] [address]. [place] [address] Care Team Providers Care Freight Sales Broker Name Role Phone Orlando Arshad MD Primary Care Provider + Orlando Arshad MD Unavailable [phone] Allergies No known active allergies Medications Medication [...] of Treatment Not on file Care Teams Freight Sales Broker Relationship Specialty Start Date End Date Orlando Arshad MD [address] [place], [place] [address] PCP - General Internal Medicine 11/27/21 Orlando Arshad MD [address] [place] [id number] Assigned PCP 10/31/21
--- OUTSIDE RECORDS SUMMARY | 2024-04-26 17:49 | XMS_ITS | Clinical Summary ---
Author Organization [facility] Address [address] [place] [address]. [place] [address] Care Team Providers Care Music Typographer Name Role Phone Orlando Arshad MD Primary Care Provider + Orlando Arshad MD Unavailable [phone] Allergies No known active allergies Medications Medication [...] per calendar year) 2023 11/27/2021 INFLUENZA VACCINE (#1) 2024 , 06/14/2020 ZOSTER IMMUNIZATION Completed 10/25/2018, 08/12/2018 HPV IMMUNIZATION Aged Out No longer e ligible based on patient's age to complete this topic MENINGITIS IMMUNIZATION Aged Out No l onger eligible based on patient's age to complete this topic RSV MONOCLONAL ANTIBODY Aged Out No l onger eligible based on patient's age to complete this topic Care Teams Music Typographer Relationship Specialty Start Date End Date Orlando Arshad MD [address] [id number] PCP - General Internal Medicine 11/27/21 Orlando Arshad MD [address] [id number] Assigned PCP 10/31/21
[2024-04-26 18:22] LABS: Basophils Absolute Auto 0.01 K/uL (0.00-0.30); Basophils Percent Auto 0.2 % (0.0-3.0); Eosinophils Absolute Auto 0.22 K/uL (0.00-0.50); Eosinophils Percent Auto 4.2 % (0.0-7.0); Hematocrit 37.1 % (37.0-53.0); Hemoglobin* 12.4 gm/dL (13.5-17.5); Immature Granulocytes Abs Auto 0.01 K/uL (0.00-0.30); Immature Granulocytes Pct Auto 0.2 %; Lymphocytes Absolute Auto 1.11 K/uL (0.90-2.90); Lymphocytes Percent Auto 21.1 % (20-44); Mean Corpuscular HGB Conc 33 gm/dL (32-36); Mean Corpuscular Hemoglobin 32 pg (26-34); Mean Corpuscular Volume 94 fL (80-100); Monocytes Percent Auto 10.6 % (0.0-11.0); Neutrophils Absolute Auto 3.35 K/uL (1.7-7.0); Neutrophils Percent Auto 63.7 % (42.0-72.0); Platelet Count* 127 K/uL (140-440); RDW Coefficient of Variation % 14.1 % (11.5-15.5); Red Blood Count 3.94 m/uL (4.30-5.90); White Blood Count* 5.26 K/uL (4.50-11.00)
[2024-04-26 18:24] VITALS: BP 133/88; PULSE 57; RESP 16; TEMP 36.1; O2SAT 95
[2024-04-26 18:35] LABS: Chloride* 109 mmol/L (96-114); Sodium* 139 mmol/L (135-149)
[2024-04-26 18:36] LABS: Potassium* 4.1 mmol/L (3.6-5.1)
[2024-04-26 18:38] LABS: Est. Creatinine Clearance* 64.84; Estimated Glomerular Filt Rate 77 ml/min
[2024-04-26 18:39] LABS: Anion Gap 6 mEq/L (7-15); Blood Urea Nitrogen* 18 mg/dL (7-30); Carbon Dioxide* 24 mmol/L (20-32); Glucose* 92 mg/dL (60-115)
[2024-04-26 18:40] LABS: Appearance Urine Cloudy (Clear); Bilirubin Urine Negative (Negative); Blood Urine 3+ (Negative); Color Urine Amber (Yellow); Glucose Urine Negative (Negative); Ketones Urine Negative (Negative); Leukocyte Esterase Urine Negative (Negative); Nitrite Urine Negative (Negative); Protein Urine Negative (Negative); Urobilinogen Urine 0.2 (0.2-1.0)
[2024-04-26 18:42] LABS: C Reactive Protein* 0.5 mg/dL (0.5-1.0); Slide Review Reflex No
[2024-04-26 18:53] LABS: RBC Urine 50-100 (0-2); WBC Urine 0-2 (0-5)
== END 2024-04-26 19:55 | disposition home or self-care (01) ==
PROVIDERS: Emergency Provider Family Medicine; PCP Family Medicine
DX: N20.2 Calculus of kidney with calculus of ureter (principal); K59.00 Constipation, unspecified
CPT/HCPCS: 36415; 74018; 80048; 81001; 85025; 86140; 99284

== ENCOUNTER 2024-10-11 07:20 | Outpatient (CLI) | payer MEDICARE, OTHER, SELFPAY | END 2024-10-11 07:21 | disposition home or self-care (01) | LOC: NFLDREF 10-15 01:40 | PROVIDERS: PCP Family Medicine; Referring Provider Family Medicine; Visit Provider Family Medicine | DX: E78.00 Pure hypercholesterolemia, unspecified (principal); R79.89 Other specified abnormal findings of blood chemistry; D64.9 Anemia, unspecified; J44.9 Chronic obstructive pulmonary disease, unspecified; N40.0 Benign prostatic hyperplasia without lower urinary tract symptoms; Z12.5 Encounter for screening for malignant neoplasm of prostate | CPT/HCPCS: 80053; 80061; G0103 ==

== ENCOUNTER 2025-08-30 07:25 | Outpatient (CLI) | payer MEDICARE, OTHER, SELFPAY | END 2025-08-30 07:26 | disposition home or self-care (01) | LOC: FRMREF 07:25 | PROVIDERS: PCP Family Medicine | DX: R06.02 Shortness of breath (principal) | CPT/HCPCS: 85379 ==